=== PATIENT | female | born 1945 | race Caucasian/White ===

== ENCOUNTER 2018-02-16 15:00 | Inpatient (IN) | payer MEDICARE, OTHER ==
[2018-02-16 15:59] LABS: ABNORMAL IP MESSAGE 1; HEMATOCRIT 54.6 % (37.0-47.0); HEMOGLOBIN 18.4 g/dl (12.0-16.0); MEAN CORPUSCULAR HEMOGLOBIN 29.4 pg (29.0-33.0); MEAN CORPUSCULAR HGB CONC 33.7 g/dl (32.0-37.0); MEAN CORPUSCULAR VOLUME 87.2 fl (82.0-101.0); NUCLEATED RED BLOOD CELLS% 1.2 /100WBC (0.0-0.0); PLATELET COUNT 101 10^3/UL (140-415); RED BLOOD COUNT 6.26 10^6/ul (4.20-5.40); RED CELL DISTRIBUTION WIDTH 23.2 % (11.5-14.5)
[2018-02-16 15:59] LABS: WHITE BLOOD COUNT 8.4 10^3/ul (4.8-10.8)
[2018-02-16] MEDS: SODIUM CHLORIDE 0.9% 1L BAG IV* (16:02)
[2018-02-16 16:10] LABS: ADD UMIC NO; UR ASCORBIC ACID NEGATIVE (NEGATIVE); UR BILIRUBIN (Dip) NEGATIVE (NEGATIVE); UR BLOOD (Dip) NEGATIVE (NEGATIVE); UR CLARITY CLEAR (CLEAR); UR COLOR AMBER (YELLOW); UR GLUCOSE (Dip) NEGATIVE (NEGATIVE); UR KETONES (Dip) NEGATIVE (NEGATIVE); UR LEUKOCYTE ESTERASE (Dip) NEGATIVE Leu/ul (NEGATIVE); UR NITRITE (Dip) NEGATIVE (NEGATIVE); UR SPECIFIC GRAVITY (Dip) 1.012 (1.003-1.030); UR TOTAL PROTEIN (Dip) NEGATIVE (NEGATIVE); UR UROBILINOGEN (Dip) 2+ mg/dL (NEGATIVE)
[2018-02-16 16:16] LABS: PARTIAL THROMBOPLASTIN TIME 37.2 Sec (23.0-35.0)
[2018-02-16 16:17] LABS: ALANINE AMINOTRANSFERASE 60 IU/L (13-69); ALBUMIN 3.6 g/dl (3.3-4.9); ALKALINE PHOSPHATASE 151 IU/L (42-121); ANION GAP 20 (5-13); ASPARTATE AMINO TRANSFERASE 152 IU/L (15-46); BILIRUBIN,INDIRECT 1.6 mg/dl (0-1.1); BILIRUBIN,TOTAL 3.2 mg/dl (0.2-1.3); BLOOD UREA NITROGEN 53 mg/dl (7-20); CALCIUM 9.5 mg/dl (8.4-10.2); CARBON DIOXIDE 17 mmol/L (21-31); CHLORIDE 103 mmol/L (97-110); CREATININE 1.85 mg/dl (0.44-1.00); GLUCOSE 186 mg/dl (70-220); POTASSIUM 5.4 mmol/L (3.5-5.1); SODIUM 140 mmol/L (135-144)
[2018-02-16 16:19] LABS: ADD MAN DIFF? YES; POSITIVE DIFF @See below
[2018-02-16 16:29] LABS: INR 2.08; PROTIME 23.9 Sec (11.9-14.9); PT RATIO 1.9
[2018-02-16 17:07] LABS: ANISOCYTOSIS 1+ (0-0); BAND NEUTROPHILS #M 0.4 10^3/ul (0.0-0.6); BAND NEUTROPHILS % (M) 5 % (0-4); BASOPHIL #M 0.1 10^3/ul (0.0-0.0); BASOPHILS % (M) 2 % (0-2); BURR CELLS 3+ (0-0); ERYTHROBLAST% (NRBC) (M) 2 % (0-0); GIANT THROMBO% (M) 5 % (0-0); LYMPHOCYTES #M 0.5 10^3/ul (0.8-2.9); LYMPHOCYTES % (M) 7 % (15-51); MONOCYTE #M 0.3 10^3/ul (0.3-0.9); MONOCYTES % (M) 4 % (0-11); OVALOCYTES 1+ (0-0); PLATELET ESTIMATE DECREASED; POIKILOCYTOSIS 3+ (0-0); REACTIVE LYMPHOCYTES #M 0.1 10^3/ul (0.0-0.0); REACTIVE LYMPHOCYTES% (M) 2 % (0-0); SEG NEUT #M 6.8 10^3/ul (1.6-7.5); SEGMENTED NEUTROPHILS (M) % 80 % (39-77); SMUDGE%M 23 % (0-0)
[2018-02-16] MEDS: MEROPENEM 1 GM/50ML(PMX) 50 ML IVPB (17:12)
[2018-02-16 17:15] LABS: AADO2 Arterial 46.1 mmHg (7.0-24.0); Arterial Base Excess -11.5 mmol/L (-3.0-3); Arterial Blood Gas Oxygen Sat 99.7 mmHG (95.0-100.0); Arterial COHb 0.4 % (0.0-3.0); Arterial Fraction of Oxyhgb 98.7 % (93.0-99.0); Arterial HCO3 10.3 mmol/L (22.0-26.0); Arterial MetHb 0.6 % (0.0-1.5); Arterial Total Hemglobin 17.8 g/dl (12.0-18.0); Blood Gas IEPAP 15/5; Blood Gas PS 10; MODE MASK - BIPAP; Site Right Brachial
[2018-02-16 17:35] LABS: CREATINE KINASE 967 IU/L (23-200)
[2018-02-16] MEDS: VANCOMYCIN 1 GM (PMX) 250 ML IVPB (18:33)
[2018-02-16 20:05] LABS: URINE BLOOD (Dip) POC Negative (NEGATIVE); URINE GLUCOSE (Dip) POC Negative (NEGATIVE); URINE KETONES (Dip) POC Trace (NEGATIVE); URINE LEUKOCYTE EST (Dip) POC Negative (NEGATIVE); URINE NITRITE (Dip) POC Negative (NEGATIVE); URINE TOTAL PROTEIN POC Trace (NEGATIVE)
[2018-02-16] MEDS ORDERED: VANCOMYCIN IV PER PHARMACY XX (20:30)
[2018-02-16 20:34] LABS: FREE T3 1.84 pg/ml (2.77-5.27); FREE T4 (FREE THYROXINE) 1.86 ng/dl (0.78-2.44)
[2018-02-16 21:20] LABS: ADD MAN DIFF? NO
[2018-02-16 21:24] LABS: ABNORMAL IP MESSAGE 1; BASOPHILS % 0.3 % (0.0-2.0); EOSINOPHILS % 0.1 % (0.0-7.0); HEMATOCRIT 48.1 % (37.0-47.0); HEMOGLOBIN 16.4 g/dl (12.0-16.0); LYMPHOCYTES # 1.1 10^3/ul (0.8-2.9); LYMPHOCYTES % 10.8 % (15.0-51.0); MEAN CORPUSCULAR HEMOGLOBIN 29.5 pg (29.0-33.0); MEAN CORPUSCULAR HGB CONC 34.1 g/dl (32.0-37.0); MEAN CORPUSCULAR VOLUME 86.7 fl (82.0-101.0); MONOCYTE # 0.3 10^3/ul (0.3-0.9); MONOCYTES % 2.6 % (0.0-11.0); NEUTROPHIL # 8.4 10^3/ul (1.6-7.5); NEUTROPHILS % 85.5 % (39.0-77.0); NUCLEATED RED BLOOD CELLS # 0.1 10^3/ul (0.0-0.0); NUCLEATED RED BLOOD CELLS% 1.2 /100WBC (0.0-0.0); PLATELET COUNT 86 10^3/UL (140-415); RED BLOOD COUNT 5.55 10^6/ul (4.20-5.40); RED CELL DISTRIBUTION WIDTH 22.3 % (11.5-14.5)
[2018-02-16 21:24] LABS: WHITE BLOOD COUNT 9.9 10^3/ul (4.8-10.8)
[2018-02-16] MEDS: SOD CHLORIDE 0.9% 1,000 ML IV (21:26)
[2018-02-16] MEDS: ASPIRIN 300 MG SUPP PR (21:26)
[2018-02-16 21:30] LABS: POSITIVE DIFF @See below
[2018-02-16] MEDS ORDERED: SOD CHLORIDE 0.9% 1,000 ML IV (21:31)
[2018-02-16 21:47] LABS: CREATINE KINASE 1095 IU/L (23-200)
[2018-02-16 21:48] LABS: LACTIC ACID 9.1 mmol/L (0.5-2.0)
[2018-02-16 22:00] LABS: CK INDEX 4.8
[2018-02-16] MEDS ORDERED: BISACODYL (EC) 5 MG TAB PO (22:00)
[2018-02-16] MEDS ORDERED: ACETAMINOPHEN 650 MG SUPP PR (22:00)
[2018-02-16] MEDS ORDERED: GLUCAGON 1 MG INJ IM (22:30)
[2018-02-16] MEDS ORDERED: DEXTROSE 50% 50 ML SYRINGE IV (22:30)
[2018-02-16] MEDS ORDERED: GLUCOSE GEL 15 GRAM TUBE BUCCAL (22:30)
[2018-02-16] MEDS ORDERED: GLUCOSE GEL 15 GRAM TUBE PO ×2 (22:30)
[2018-02-16 22:58] LABS: HAAIG REFLEX REFLEX FILED
[2018-02-16] MEDS ORDERED: DIGOXIN 500 MCG INJ IV (23:00)
[2018-02-16 23:02] LABS: ALANINE AMINOTRANSFERASE 59 IU/L (13-69); ALBUMIN 2.3 g/dl (3.3-4.9); ALBUMIN/GLOBULIN RATIO 1.27; ALKALINE PHOSPHATASE 108 IU/L (42-121); ANION GAP 18 (5-13); ASPARTATE AMINO TRANSFERASE 114 IU/L (15-46); BILIRUBIN,INDIRECT 1.1 mg/dl (0-1.1); BILIRUBIN,TOTAL 2.5 mg/dl (0.2-1.3); BLOOD UREA NITROGEN 48 mg/dl (7-20); CALCIUM 8.3 mg/dl (8.4-10.2); CARBON DIOXIDE 11 mmol/L (21-31); CHLORIDE 112 mmol/L (97-110); CREATININE 1.72 mg/dl (0.44-1.00); GLUCOSE 78 mg/dl (70-220); POTASSIUM 5.1 mmol/L (3.5-5.1); SODIUM 141 mmol/L (135-144); TOTAL PROTEIN 4.1 g/dl (6.1-8.1)
[2018-02-16] MEDS: DEXTROSE 50% 50 ML SYRINGE IV ×2 (23:46→23:57)
[2018-02-16 23:50] LABS: HEPATITIS B SURFACE ANTIGEN NEGATIVE (NEGATIVE)
[2018-02-17 00:08] LABS: HEPATITIS B CORE ANTIBODY NEGATIVE (NEGATIVE); HEPATITIS C VIRAL ANTIBODY NEGATIVE (NEGATIVE)
[2018-02-17 00:09] LABS: HEPATITIS B SURFACE ANTIBODY NEGATIVE (NEGATIVE)
[2018-02-17] MEDS: METOPROLOL 5 MG INJ IV ×2 (00:21→21:21)
[2018-02-17] MEDS: ALBUMIN HUMAN 25% 100 ML IV ×2 (00:38→02:56)
[2018-02-17] MEDS: SODIUM BICARBONATE (IV ADD) 150 MEQ in DEXTROSE 5% 1,000 ML IV (00:45)
[2018-02-17 00:52] LABS: AADO2 Arterial 208.8 mmHg (7.0-24.0); Arterial Base Excess -11.5 mmol/L (-3.0-3); Arterial COHb 0.5 % (0.0-3.0); Arterial Fraction of Oxyhgb 81.3 % (93.0-99.0); Arterial HCO3 11.8 mmol/L (22.0-26.0); Arterial MetHb 0.4 % (0.0-1.5); Arterial Total Hemglobin 16.5 g/dl (12.0-18.0); Arterial pCO2 22.5 mmhg (35-45); Blood Gas IEPAP 15/5; MODE MASK - BIPAP; Site LB
[2018-02-17 00:59] LABS: LACTIC ACID 9.7 mmol/L (0.5-2.0)
[2018-02-17] MEDS: IPRATROPIUM (NEB) 0.5 MG/2.5 ML AMP NEB ×6 (01:00→20:21)
[2018-02-17] MEDS: ALBUTEROL 0.083% (NEB) 2.5 MG/3 ML AMP NEB ×2 (01:00→05:20)
[2018-02-17] MEDS: ACCU-CHEK XX (02:04)
[2018-02-17] MEDS: INSULIN ASPART [NOVOLOG] 3 ML PEN SC ×7 (02:11→21:52)
[2018-02-17 02:56] LABS: CREATINE KINASE 996 IU/L (23-200)
[2018-02-17] MEDS: LEVOTHYROXINE 100 MCG VIAL IV (02:56)
[2018-02-17] MEDS: NA BICARBONATE 8.4% 50 ML SYG IV ×2 (02:57)
[2018-02-17 02:58] LABS: ALANINE AMINOTRANSFERASE 58 IU/L (13-69); ALBUMIN 3.1 g/dl (3.3-4.9); ALBUMIN/GLOBULIN RATIO 1.47; ALKALINE PHOSPHATASE 117 IU/L (42-121); ANION GAP 18 (5-13); ASPARTATE AMINO TRANSFERASE 131 IU/L (15-46); BILIRUBIN,INDIRECT 1.3 mg/dl (0-1.1); BILIRUBIN,TOTAL 2.8 mg/dl (0.2-1.3); BLOOD UREA NITROGEN 49 mg/dl (7-20); CALCIUM 8.6 mg/dl (8.4-10.2); CARBON DIOXIDE 12 mmol/L (21-31); CHLORIDE 113 mmol/L (97-110); CREATININE 1.83 mg/dl (0.44-1.00); GLUCOSE 153 mg/dl (70-220); MAGNESIUM 2.1 mg/dl (1.7-2.5); POTASSIUM 4.9 mmol/L (3.5-5.1); SODIUM 143 mmol/L (135-144); TOTAL PROTEIN 5.2 g/dl (6.1-8.1)
[2018-02-17 03:07] LABS: CK INDEX 4.9
[2018-02-17] MEDS: MEROPENEM 500MG/50 ML (PMX) 50 ML IVPB ×3 (04:44→20:09)
[2018-02-17] MEDS: PANTOPRAZOLE 40 MG INJ IV (05:07)
[2018-02-17 05:13] LABS: ADD MAN DIFF? NO
[2018-02-17 05:20] LABS: ABNORMAL IP MESSAGE 1; BASOPHILS % 0.2 % (0.0-2.0); EOSINOPHILS % 0.1 % (0.0-7.0); HEMOGLOBIN 13.3 g/dl (12.0-16.0); LYMPHOCYTES # 2.1 10^3/ul (0.8-2.9); LYMPHOCYTES % 18.7 % (15.0-51.0); MEAN CORPUSCULAR HEMOGLOBIN 29.7 pg (29.0-33.0); MEAN CORPUSCULAR VOLUME 84.8 fl (82.0-101.0); MONOCYTE # 0.3 10^3/ul (0.3-0.9); MONOCYTES % 2.9 % (0.0-11.0); NEUTROPHIL # 8.6 10^3/ul (1.6-7.5); NEUTROPHILS % 77.6 % (39.0-77.0); NUCLEATED RED BLOOD CELLS # 0.1 10^3/ul (0.0-0.0); NUCLEATED RED BLOOD CELLS% 0.7 /100WBC (0.0-0.0); RED BLOOD COUNT 4.48 10^6/ul (4.20-5.40); RED CELL DISTRIBUTION WIDTH 21.2 % (11.5-14.5)
[2018-02-17 05:32] LABS: HEMOGLOBIN A1C 6.2 % (0-5.9)
[2018-02-17 05:54] LABS: PLATELET COUNT 46 10^3/UL (140-415); POSITIVE DIFF @See below
[2018-02-17 06:06] LABS: INR 3.29; PROTIME 34.5 Sec (11.9-14.9); PT RATIO 2.7
[2018-02-17] MEDS: PHENYLephrine 40 MG in DEXTROSE 5% 496 ML IV (06:19)
[2018-02-17 07:23] LABS: B-TYPE NATRIURETIC PEPTIDE 7870 PG/ML (0-125)
[2018-02-17 07:26] LABS: AADO2 Arterial 52.9 mmHg (7.0-24.0); Allen Test ACCEPTAB; Arterial Base Excess -4.1 mmol/L (-3.0-3); Arterial Blood Gas Oxygen Sat 98.9 mmHG (95.0-100.0); Arterial COHb 0.8 % (0.0-3.0); Arterial Fraction of Oxyhgb 97.7 % (93.0-99.0); Arterial HCO3 17.3 mmol/L (22.0-26.0); Arterial MetHb 0.4 % (0.0-1.5); Arterial Total Hemglobin 14.1 g/dl (12.0-18.0); Arterial pCO2 23.4 mmhg (35-45); MODE NASAL CANNULA; Site Left Radial
[2018-02-17 08:29] LABS: OSMOLALITY 325 mOsm/kg (280-295)
[2018-02-17] MEDS ORDERED: SOD CHLORIDE 0.9% 1,000 ML IV (09:30)
[2018-02-17 09:37] LABS: CREATINE KINASE 814 IU/L (23-200)
[2018-02-17 09:50] LABS: CK INDEX 5.3
[2018-02-17] MEDS: FUROSEMIDE 40 MG INJ IV (10:00)
[2018-02-17 10:12] LABS: PLATELET COUNT 74 10^3/UL (140-415)
[2018-02-17 10:29] LABS: LACTIC ACID 6.7 mmol/L (0.5-2.0)
[2018-02-17 10:32] LABS: PARTIAL THROMBOPLASTIN TIME 32.9 Sec (23.0-35.0)
[2018-02-17 10:37] LABS: INR 3.13; PROTIME 33.1 Sec (11.9-14.9); PT RATIO 2.6
[2018-02-17 10:55] LABS: FIBRIN SPLIT PRODUCT <10 ug/ml (<10)
[2018-02-17 10:56] LABS: D-DIMER > 10000.00 ng/ml (<460)
[2018-02-17] MEDS: DEXTROSE 5% 1,000 ML IV (11:00)
[2018-02-17 11:06] LABS: THROMBIN TIME 18.7 SEC (13.8-19.1)
[2018-02-17 12:12] LABS: AADO2 Arterial 38.6 mmHg (7.0-24.0); Allen Test ACCEPTAB; Arterial Base Excess -2.1 mmol/L (-3.0-3); Arterial Blood Gas Oxygen Sat 98.8 mmHG (95.0-100.0); Arterial COHb 0.4 % (0.0-3.0); Arterial HCO3 19.7 mmol/L (22.0-26.0); Arterial MetHb 0.4 % (0.0-1.5); Arterial Total Hemglobin 14.5 g/dl (12.0-18.0); Arterial pCO2 26.6 mmhg (35-45); MODE NASAL CANNULA; Site Left Radial
[2018-02-17] MEDS: LIDOCAINE 1% (MPF) 5 ML VIAL SC (13:00)
[2018-02-17 14:11] LABS: LACTIC ACID 5.6 mmol/L (0.5-2.0)
[2018-02-17] MEDS ORDERED: ONDANSETRON 4 MG INJ IV (14:30)
[2018-02-17 16:52] LABS: RETICULOCYTE RBC 4.49
[2018-02-17 16:52] LABS: RETICULOCYTE COUNT # 0.083 X10^6 (0.020-0.110); RETICULOCYTE COUNT % 1.9 % (0.5-1.5)
[2018-02-17 17:09] LABS: LACTATE DEHYDROGENASE 1155 IU/L (313-618)
[2018-02-17 18:05] LABS: SALICYLATE 1.1 mg/dl (5.0-30.0)
[2018-02-17] MEDS ORDERED: NORepinephrine 8MG/250 ML (PMX 250 ML IV (20:00)
[2018-02-17] MEDS: LEVALBUTEROL (NEB) 0.63 MG/3 ML AMP HHN (20:20)
[2018-02-18] MEDS: ACCU-CHEK XX (01:50)
[2018-02-18] MEDS: INSULIN ASPART [NOVOLOG] 3 ML PEN SC ×6 (01:54→22:30)
[2018-02-18] MEDS: IPRATROPIUM (NEB) 0.5 MG/2.5 ML AMP NEB ×6 (02:04→20:29)
[2018-02-18] MEDS: LEVALBUTEROL (NEB) 0.63 MG/3 ML AMP HHN ×6 (02:04→20:29)
[2018-02-18] MEDS: PANTOPRAZOLE 40 MG INJ IV (05:28)
[2018-02-18 05:48] LABS: ADD MAN DIFF? NO
[2018-02-18 06:01] LABS: ABNORMAL IP MESSAGE 1; BASOPHILS % 0.1 % (0.0-2.0); EOSINOPHILS % 0.2 % (0.0-7.0); HEMATOCRIT 38.2 % (37.0-47.0); HEMOGLOBIN 13.1 g/dl (12.0-16.0); LYMPHOCYTES # 1.7 10^3/ul (0.8-2.9); LYMPHOCYTES % 18.5 % (15.0-51.0); MEAN CORPUSCULAR HEMOGLOBIN 29.6 pg (29.0-33.0); MEAN CORPUSCULAR HGB CONC 34.3 g/dl (32.0-37.0); MEAN CORPUSCULAR VOLUME 86.2 fl (82.0-101.0); MONOCYTE # 0.6 10^3/ul (0.3-0.9); MONOCYTES % 6.2 % (0.0-11.0); NEUTROPHIL # 6.8 10^3/ul (1.6-7.5); NEUTROPHILS % 74.6 % (39.0-77.0); NUCLEATED RED BLOOD CELLS # 0.1 10^3/ul (0.0-0.0); NUCLEATED RED BLOOD CELLS% 1.4 /100WBC (0.0-0.0); PLATELET COUNT 69 10^3/UL (140-415); RED BLOOD COUNT 4.43 10^6/ul (4.20-5.40); RED CELL DISTRIBUTION WIDTH 20.9 % (11.5-14.5)
[2018-02-18 06:01] LABS: WHITE BLOOD COUNT 9.1 10^3/ul (4.8-10.8)
[2018-02-18 06:10] LABS: POSITIVE DIFF @See below
[2018-02-18 06:18] LABS: INR 2.63; PROTIME 28.8 Sec (11.9-14.9); PT RATIO 2.3
[2018-02-18 06:22] LABS: INR 2.63; PROTIME 28.8 Sec (11.9-14.9); PT RATIO 2.3
[2018-02-18 06:24] LABS: PARTIAL THROMBOPLASTIN TIME 41.7 Sec (23.0-35.0); THROMBIN TIME 16.6 SEC (13.8-19.1)
[2018-02-18 06:37] LABS: ALANINE AMINOTRANSFERASE 71 IU/L (13-69); ALBUMIN 2.8 g/dl (3.3-4.9); ALBUMIN/GLOBULIN RATIO 1.64; ALKALINE PHOSPHATASE 107 IU/L (42-121); ANION GAP 12 (5-13); ASPARTATE AMINO TRANSFERASE 137 IU/L (15-46); BILIRUBIN,INDIRECT 1.3 mg/dl (0-1.1); BILIRUBIN,TOTAL 2.1 mg/dl (0.2-1.3); BLOOD UREA NITROGEN 59 mg/dl (7-20); CARBON DIOXIDE 25 mmol/L (21-31); CHLORIDE 107 mmol/L (97-110); CREATININE 1.98 mg/dl (0.44-1.00); GLUCOSE 129 mg/dl (70-220); MAGNESIUM 1.9 mg/dl (1.7-2.5); POTASSIUM 3.9 mmol/L (3.5-5.1); SODIUM 144 mmol/L (135-144); TOTAL PROTEIN 4.5 g/dl (6.1-8.1)
[2018-02-18 06:44] LABS: D-DIMER > 10000.00 ng/ml (<460)
[2018-02-18 06:47] LABS: PHOSPHORUS 5.6 mg/dl (2.5-4.9)
[2018-02-18 06:56] LABS: PLATELET COUNT 69 10^3/UL (140-415)
[2018-02-18 07:11] LABS: FIBRIN SPLIT PRODUCT >10 and <40 ug/ml (<10)
[2018-02-18 08:09] LABS: VANCOMYCIN,RANDOM 12.3 ug/ml
[2018-02-18] MEDS: MEROPENEM 500MG/50 ML (PMX) 50 ML IVPB ×2 (09:07→23:21)
[2018-02-18] MEDS: METOPROLOL 5 MG INJ IV (09:08)
[2018-02-18] MEDS: DEXTROSE 5% 1,000 ML IV (09:08)
[2018-02-18] MEDS: BUMETANIDE 12 MG in DEXTROSE 5% 72 ML IV (10:44)
[2018-02-18] MEDS ORDERED: IOHEXOL 14.3 MG(I)/ML (ADULT) BTL PO ×2 (15:30→17:00)
[2018-02-18] MEDS ORDERED: LIDOCAINE 2% JEL.PF.APP 5 ML UROJET SYRINGE MM (16:00)
[2018-02-18 16:27] LABS: TYPE AND SCREEN 1
[2018-02-18] MEDS: DIGOXIN 500 MCG INJ IV (16:28)
[2018-02-18] MEDS: VANCOMYCIN 1.25 GM in SOD CHLORIDE 0.9% 250 ML IVPB (16:28)
[2018-02-18] MEDS: PHYTONADIONE 10 MG in DEXTROSE 5% 50 ML IVPB (18:12)
[2018-02-19] MEDS: INSULIN ASPART [NOVOLOG] 3 ML PEN SC ×6 (01:00→22:38)
[2018-02-19] MEDS: ACCU-CHEK XX (01:02)
[2018-02-19] MEDS: LEVALBUTEROL (NEB) 0.63 MG/3 ML AMP HHN ×3 (01:26→21:12)
[2018-02-19] MEDS: IPRATROPIUM (NEB) 0.5 MG/2.5 ML AMP NEB ×6 (01:26→21:12)
[2018-02-19] MEDS: PANTOPRAZOLE 40 MG INJ IV (05:25)
[2018-02-19] MEDS: DEXTROSE 5% 1,000 ML IV ×2 (05:29→23:00)
[2018-02-19 05:42] LABS: ADD MAN DIFF? NO
[2018-02-19 05:46] LABS: WHITE BLOOD COUNT 6.6 10^3/ul (4.8-10.8)
[2018-02-19 05:46] LABS: ABNORMAL IP MESSAGE 1; BASOPHILS % 0.2 % (0.0-2.0); EOSINOPHILS # 0.1 10^3/ul (0.0-0.5); EOSINOPHILS % 0.9 % (0.0-7.0); HEMOGLOBIN 12.7 g/dl (12.0-16.0); LYMPHOCYTES # 1.2 10^3/ul (0.8-2.9); LYMPHOCYTES % 18.4 % (15.0-51.0); MEAN CORPUSCULAR HEMOGLOBIN 29.5 pg (29.0-33.0); MEAN CORPUSCULAR HGB CONC 34.3 g/dl (32.0-37.0); MEAN PLATELET VOLUME 11.1 fl (7.4-10.4); MONOCYTE # 0.5 10^3/ul (0.3-0.9); MONOCYTES % 7.9 % (0.0-11.0); NEUTROPHIL # 4.8 10^3/ul (1.6-7.5); NEUTROPHILS % 72.1 % (39.0-77.0); NUCLEATED RED BLOOD CELLS # 0.1 10^3/ul (0.0-0.0); NUCLEATED RED BLOOD CELLS% 2.1 /100WBC (0.0-0.0); PLATELET COUNT 68 10^3/UL (140-415); RED CELL DISTRIBUTION WIDTH 20.7 % (11.5-14.5)
[2018-02-19 05:55] LABS: POSITIVE DIFF @See below
[2018-02-19 06:00] LABS: SODIUM,URINE RANDOM 118 mmol/L (30-90)
[2018-02-19 06:01] LABS: CREATININE,URINE RANDOM < 12.40 mg/dl (20-320)
[2018-02-19 06:03] LABS: INR 1.61; PROTIME 19.5 Sec (11.9-14.9); PT RATIO 1.5
[2018-02-19 06:08] LABS: CREATINE KINASE 379 IU/L (23-200)
[2018-02-19 06:10] LABS: ALANINE AMINOTRANSFERASE 81 IU/L (13-69); ALKALINE PHOSPHATASE 106 IU/L (42-121); ANION GAP 9 (5-13); ASPARTATE AMINO TRANSFERASE 132 IU/L (15-46); BILIRUBIN,INDIRECT 1.9 mg/dl (0-1.1); BILIRUBIN,TOTAL 2.7 mg/dl (0.2-1.3); BLOOD UREA NITROGEN 60 mg/dl (7-20); CALCIUM 8.1 mg/dl (8.4-10.2); CARBON DIOXIDE 30 mmol/L (21-31); CHLORIDE 103 mmol/L (97-110); CREATININE 1.89 mg/dl (0.44-1.00); GLUCOSE 128 mg/dl (70-220); MAGNESIUM 1.7 mg/dl (1.7-2.5); POTASSIUM 3.3 mmol/L (3.5-5.1); SODIUM 142 mmol/L (135-144); TOTAL PROTEIN 5.3 g/dl (6.1-8.1)
[2018-02-19 06:19] LABS: CK INDEX 1.3; CK-MB 4.84 ng/ml (0.0-2.4); CREATININE,URINE RANDOM < 12.40 mg/dl (20-320)
[2018-02-19 06:27] LABS: ADD UMIC YES; UR ASCORBIC ACID NEGATIVE (NEGATIVE); UR BILIRUBIN (Dip) NEGATIVE (NEGATIVE); UR BLOOD (Dip) 2+ mg/dL (NEGATIVE); UR CLARITY CLEAR (CLEAR); UR COLOR YELLOW (YELLOW); UR GLUCOSE (Dip) NEGATIVE (NEGATIVE); UR KETONES (Dip) NEGATIVE (NEGATIVE); UR LEUKOCYTE ESTERASE (Dip) NEGATIVE Leu/ul (NEGATIVE); UR MUCUS FEW /HPF (NONE SEEN); UR NITRITE (Dip) NEGATIVE (NEGATIVE); UR RBC 2 /HPF (0-5); UR SPECIFIC GRAVITY (Dip) 1.005 (1.003-1.030); UR TOTAL PROTEIN (Dip) NEGATIVE (NEGATIVE); UR UROBILINOGEN (Dip) NEGATIVE (NEGATIVE); UR WBC 1 /HPF (0-5)
[2018-02-19 07:01] LABS: OSMOLALITY,URINE 289 mOsm/kg (250-1200)
[2018-02-19] MEDS: SPIRONOLACTONE 25 MG TAB PO (09:14)
[2018-02-19] MEDS: BUMETANIDE 6 MG in DEXTROSE 5% 36 ML IV (09:14)
[2018-02-19] MEDS: MEROPENEM 500MG/50 ML (PMX) 50 ML IVPB ×2 (09:14→22:30)
[2018-02-19] MEDS: POTASSIUM CHLORIDE 100 ML IVPB ×2 (09:14→12:40)
[2018-02-19] MEDS: BALSAM PERU/CASTOR OIL 60 GM TUBE TOP (11:00)
[2018-02-19 11:07] LABS: IMMEDIATE SPIN CROSSMATCH 1
[2018-02-19 13:06] LABS: TYPE AND SCREEN 1 1
[2018-02-19] MEDS: METOPROLOL 5 MG INJ IV ×2 (13:09→17:06)
[2018-02-19 13:51] LABS: HAPTOGLOBIN <8 mg/dL (43-212)
[2018-02-19 14:33] LABS: ANION GAP 10 (5-13); BLOOD UREA NITROGEN 57 mg/dl (7-20); CALCIUM 8.2 mg/dl (8.4-10.2); CARBON DIOXIDE 30 mmol/L (21-31); CHLORIDE 101 mmol/L (97-110); CREATININE 1.76 mg/dl (0.44-1.00); GLUCOSE 163 mg/dl (70-220); POTASSIUM 4.2 mmol/L (3.5-5.1); SODIUM 141 mmol/L (135-144)
[2018-02-19] MEDS: LIDOCAINE 1% (MPF) 5 ML VIAL ×2 (15:45)
[2018-02-19] MEDS: MAGNESIUM SULFATE 2 GM/50 ML 50 ML IVPB (16:59)
[2018-02-20] MEDS: INSULIN ASPART [NOVOLOG] 3 ML PEN SC ×6 (01:00→20:21)
[2018-02-20] MEDS: IPRATROPIUM (NEB) 0.5 MG/2.5 ML AMP NEB ×6 (01:32→20:48)
[2018-02-20] MEDS: LEVALBUTEROL (NEB) 0.63 MG/3 ML AMP HHN ×5 (01:32→17:38)
[2018-02-20] MEDS: ACCU-CHEK XX (02:00)
[2018-02-20] MEDS: METOPROLOL 5 MG INJ IV ×4 (02:46→17:54)
[2018-02-20] MEDS: PANTOPRAZOLE 40 MG INJ IV (06:01)
[2018-02-20] MEDS: SPIRONOLACTONE 25 MG TAB PO (06:01)
[2018-02-20 06:18] LABS: ADD MAN DIFF? NO
[2018-02-20 06:25] LABS: ABNORMAL IP MESSAGE 1; BASOPHILS % 0.2 % (0.0-2.0); EOSINOPHILS # 0.1 10^3/ul (0.0-0.5); EOSINOPHILS % 2.2 % (0.0-7.0); HEMOGLOBIN 13.1 g/dl (12.0-16.0); LYMPHOCYTES # 1.2 10^3/ul (0.8-2.9); LYMPHOCYTES % 22.2 % (15.0-51.0); MEAN CORPUSCULAR HEMOGLOBIN 29.1 pg (29.0-33.0); MEAN CORPUSCULAR HGB CONC 33.6 g/dl (32.0-37.0); MEAN CORPUSCULAR VOLUME 86.7 fl (82.0-101.0); MONOCYTE # 0.6 10^3/ul (0.3-0.9); MONOCYTES % 10.6 % (0.0-11.0); NEUTROPHIL # 3.4 10^3/ul (1.6-7.5); NEUTROPHILS % 63.9 % (39.0-77.0); NUCLEATED RED BLOOD CELLS # 0.2 10^3/ul (0.0-0.0); NUCLEATED RED BLOOD CELLS% 2.8 /100WBC (0.0-0.0); PLATELET COUNT 51 10^3/UL (140-415); RED CELL DISTRIBUTION WIDTH 20.5 % (11.5-14.5)
[2018-02-20 06:25] LABS: WHITE BLOOD COUNT 5.4 10^3/ul (4.8-10.8)
[2018-02-20 06:36] LABS: POSITIVE DIFF @See below
[2018-02-20 06:43] LABS: INR 1.38; PROTIME 17.2 Sec (11.9-14.9); PT RATIO 1.3
[2018-02-20 06:49] LABS: ALANINE AMINOTRANSFERASE 121 IU/L (13-69); ALBUMIN 3.4 g/dl (3.3-4.9); ALBUMIN/GLOBULIN RATIO 1.54; ALKALINE PHOSPHATASE 134 IU/L (42-121); ANION GAP 12 (5-13); ASPARTATE AMINO TRANSFERASE 240 IU/L (15-46); BILIRUBIN,INDIRECT 2.4 mg/dl (0-1.1); BILIRUBIN,TOTAL 2.9 mg/dl (0.2-1.3); BLOOD UREA NITROGEN 50 mg/dl (7-20); CALCIUM 8.1 mg/dl (8.4-10.2); CARBON DIOXIDE 32 mmol/L (21-31); CHLORIDE 92 mmol/L (97-110); CREATININE 1.49 mg/dl (0.44-1.00); GLUCOSE 331 mg/dl (70-220); POTASSIUM 3.4 mmol/L (3.5-5.1); SODIUM 136 mmol/L (135-144); TOTAL PROTEIN 5.6 g/dl (6.1-8.1)
[2018-02-20 06:51] LABS: VANCOMYCIN,RANDOM 17.4 ug/ml
[2018-02-20] MEDS: DEXTROSE 5% 1,000 ML IV (06:59)
[2018-02-20 07:27] LABS: FIBRIN SPLIT PRODUCT >40 and <80 ug/ml (<10)
[2018-02-20 08:08] LABS: PLATELET COUNT 51 10^3/UL (140-415)
[2018-02-20 08:09] LABS: INR 1.38; PARTIAL THROMBOPLASTIN TIME 32.6 Sec (23.0-35.0); PROTIME 17.2 Sec (11.9-14.9); PT RATIO 1.3
[2018-02-20] MEDS: BALSAM PERU/CASTOR OIL 60 GM TUBE TOP (09:00)
[2018-02-20 09:11] LABS: D-DIMER > 10000.00 ng/ml (<460)
[2018-02-20 09:21] LABS: THROMBIN TIME 17.2 SEC (13.8-19.1)
[2018-02-20] MEDS: MEROPENEM 500MG/50 ML (PMX) 50 ML IVPB ×2 (10:05→20:14)
[2018-02-20] MEDS: POTASSIUM CHLORIDE 50 ML IVPB ×2 (11:02→13:26)
[2018-02-20 19:47] LABS: C-REACTIVE PROTEIN 1.9 mg/dl (0.0-0.9)
[2018-02-20] MEDS: VANCOMYCIN 1 GM 250 ML IVPB (21:08)
[2018-02-21] MEDS: INSULIN ASPART [NOVOLOG] 3 ML PEN SC ×5 (00:23→17:25)
[2018-02-21] MEDS: METOPROLOL 5 MG INJ IV ×2 (00:25→05:21)
[2018-02-21] MEDS: IPRATROPIUM (NEB) 0.5 MG/2.5 ML AMP NEB ×6 (00:41→20:11)
[2018-02-21] MEDS: ACCU-CHEK XX (01:28)
[2018-02-21] MEDS: SPIRONOLACTONE 25 MG TAB PO (05:20)
[2018-02-21] MEDS: PANTOPRAZOLE 40 MG INJ IV (05:20)
[2018-02-21] MEDS: DEXTROSE 5% 1,000 ML IV (05:21)
[2018-02-21 06:00] LABS: ADD MAN DIFF? NO
[2018-02-21 06:02] LABS: WHITE BLOOD COUNT 5.8 10^3/ul (4.8-10.8)
[2018-02-21 06:02] LABS: ABNORMAL IP MESSAGE 1; BASOPHILS % 0.5 % (0.0-2.0); EOSINOPHILS # 0.1 10^3/ul (0.0-0.5); EOSINOPHILS % 2.4 % (0.0-7.0); HEMATOCRIT 43.2 % (37.0-47.0); HEMOGLOBIN 14.3 g/dl (12.0-16.0); LYMPHOCYTES # 1.8 10^3/ul (0.8-2.9); LYMPHOCYTES % 30.6 % (15.0-51.0); MEAN CORPUSCULAR HEMOGLOBIN 29.1 pg (29.0-33.0); MEAN CORPUSCULAR HGB CONC 33.1 g/dl (32.0-37.0); MEAN CORPUSCULAR VOLUME 87.8 fl (82.0-101.0); MONOCYTE # 0.7 10^3/ul (0.3-0.9); MONOCYTES % 12.2 % (0.0-11.0); NEUTROPHIL # 3.1 10^3/ul (1.6-7.5); NEUTROPHILS % 52.9 % (39.0-77.0); NUCLEATED RED BLOOD CELLS # 0.3 10^3/ul (0.0-0.0); NUCLEATED RED BLOOD CELLS% 4.5 /100WBC (0.0-0.0); RED BLOOD COUNT 4.92 10^6/ul (4.20-5.40); RED CELL DISTRIBUTION WIDTH 20.8 % (11.5-14.5)
[2018-02-21 06:28] LABS: PLATELET COUNT 48 10^3/UL (140-415); POSITIVE DIFF @See below
[2018-02-21 06:32] LABS: INR 1.57; PROTIME 19.1 Sec (11.9-14.9); PT RATIO 1.5
[2018-02-21 06:33] LABS: PARTIAL THROMBOPLASTIN TIME 33.8 Sec (23.0-35.0)
[2018-02-21 06:38] LABS: PLATELET COUNT 48 10^3/UL (140-415)
[2018-02-21 06:49] LABS: LACTIC ACID 2.3 mmol/L (0.5-2.0)
[2018-02-21 06:54] LABS: ALANINE AMINOTRANSFERASE 124 IU/L (13-69); ALBUMIN 3.2 g/dl (3.3-4.9); ALBUMIN/GLOBULIN RATIO 1.39; ALKALINE PHOSPHATASE 162 IU/L (42-121); ANION GAP 7 (5-13); ASPARTATE AMINO TRANSFERASE 192 IU/L (15-46); BILIRUBIN,INDIRECT 2.6 mg/dl (0-1.1); BILIRUBIN,TOTAL 3.3 mg/dl (0.2-1.3); BLOOD UREA NITROGEN 50 mg/dl (7-20); CALCIUM 8.6 mg/dl (8.4-10.2); CARBON DIOXIDE 35 mmol/L (21-31); CHLORIDE 98 mmol/L (97-110); CREATININE 1.44 mg/dl (0.44-1.00); GLUCOSE 83 mg/dl (70-220); MAGNESIUM 1.8 mg/dl (1.7-2.5); POTASSIUM 4.2 mmol/L (3.5-5.1); SODIUM 140 mmol/L (135-144); TOTAL PROTEIN 5.5 g/dl (6.1-8.1)
[2018-02-21 07:02] LABS: FREE THYROXINE INDEX (Calc) 2.88 ug/ml (0.65-3.89)
[2018-02-21 07:24] LABS: HIV 1&2 ANTIBODY NEGATIVE (NEGATIVE)
[2018-02-21 07:25] LABS: FIBRIN SPLIT PRODUCT >40 and <80 ug/ml (<10)
[2018-02-21 07:26] LABS: D-DIMER > 10000.00 ng/ml (<460)
[2018-02-21] MEDS: MEROPENEM 500MG/50 ML (PMX) 50 ML IVPB ×2 (08:51→20:45)
[2018-02-21] MEDS: BALSAM PERU/CASTOR OIL 60 GM TUBE TOP (08:52)
[2018-02-21] MEDS: MAGNESIUM SULFATE 2 GM/50 ML 50 ML IVPB (12:20)
[2018-02-21 14:32] LABS: HAAIG REFLEX REFLEX FILED
[2018-02-21 14:48] LABS: AMMONIA 26 umol/l (9-30)
[2018-02-21 15:38] LABS: HEPATITIS B SURFACE ANTIGEN NEGATIVE (NEGATIVE)
[2018-02-21 15:56] LABS: HEPATITIS B CORE ANTIBODY NEGATIVE (NEGATIVE); HEPATITIS C VIRAL ANTIBODY NEGATIVE (NEGATIVE)
[2018-02-22] MEDS: IPRATROPIUM (NEB) 0.5 MG/2.5 ML AMP NEB ×6 (01:17→21:56)
[2018-02-22] MEDS: ACCU-CHEK XX (02:29)
[2018-02-22] MEDS: DEXTROSE 5% 1,000 ML IV (03:45)
[2018-02-22] MEDS: PANTOPRAZOLE 40 MG INJ IV (05:23)
[2018-02-22] MEDS: SPIRONOLACTONE 25 MG TAB PO (05:23)
[2018-02-22 05:44] LABS: ADD MAN DIFF? NO
[2018-02-22 05:52] LABS: PLATELET COUNT 50 10^3/UL (140-415)
[2018-02-22 05:56] LABS: ABNORMAL IP MESSAGE 1; BASOPHILS % 0.4 % (0.0-2.0); EOSINOPHILS # 0.1 10^3/ul (0.0-0.5); EOSINOPHILS % 1.4 % (0.0-7.0); HEMATOCRIT 40.9 % (37.0-47.0); LYMPHOCYTES # 1.1 10^3/ul (0.8-2.9); LYMPHOCYTES % 11.5 % (15.0-51.0); MEAN CORPUSCULAR HEMOGLOBIN 29.6 pg (29.0-33.0); MEAN CORPUSCULAR HGB CONC 34.2 g/dl (32.0-37.0); MEAN CORPUSCULAR VOLUME 86.5 fl (82.0-101.0); MONOCYTE # 0.7 10^3/ul (0.3-0.9); MONOCYTES % 6.7 % (0.0-11.0); NEUTROPHIL # 7.7 10^3/ul (1.6-7.5); NEUTROPHILS % 79.3 % (39.0-77.0); NUCLEATED RED BLOOD CELLS # 0.2 10^3/ul (0.0-0.0); NUCLEATED RED BLOOD CELLS% 1.5 /100WBC (0.0-0.0); PLATELET COUNT 45 10^3/UL (140-415); RED BLOOD COUNT 4.73 10^6/ul (4.20-5.40); RED CELL DISTRIBUTION WIDTH 20.2 % (11.5-14.5)
[2018-02-22 05:56] LABS: WHITE BLOOD COUNT 9.7 10^3/ul (4.8-10.8)
[2018-02-22 06:00] LABS: POSITIVE DIFF @See below
[2018-02-22 06:17] LABS: INR 1.59; PROTIME 19.3 Sec (11.9-14.9); PT RATIO 1.5
[2018-02-22 06:18] LABS: PARTIAL THROMBOPLASTIN TIME 33.9 Sec (23.0-35.0)
[2018-02-22 06:30] LABS: ALANINE AMINOTRANSFERASE 100 IU/L (13-69); ALBUMIN 2.7 g/dl (3.3-4.9); ALBUMIN/GLOBULIN RATIO 1.12; ALKALINE PHOSPHATASE 145 IU/L (42-121); ANION GAP 7 (5-13); ASPARTATE AMINO TRANSFERASE 127 IU/L (15-46); BILIRUBIN,INDIRECT 2.6 mg/dl (0-1.1); BILIRUBIN,TOTAL 3.8 mg/dl (0.2-1.3); BLOOD UREA NITROGEN 48 mg/dl (7-20); CARBON DIOXIDE 30 mmol/L (21-31); CHLORIDE 97 mmol/L (97-110); CREATININE 1.08 mg/dl (0.44-1.00); GLUCOSE 173 mg/dl (70-220); POTASSIUM 4.6 mmol/L (3.5-5.1); SODIUM 134 mmol/L (135-144); TOTAL PROTEIN 5.1 g/dl (6.1-8.1)
[2018-02-22 06:36] LABS: CREATINE KINASE 89 IU/L (23-200)
[2018-02-22 06:42] LABS: CK INDEX 1.4; CK-MB 1.24 ng/ml (0.0-2.4)
[2018-02-22 06:45] LABS: D-DIMER > 10000.00 ng/ml (<460)
[2018-02-22 07:29] LABS: FIBRIN SPLIT PRODUCT >40 and <80 ug/ml (<10)
[2018-02-22] MEDS: INSULIN ASPART [NOVOLOG] 3 ML PEN SC ×3 (07:58→17:09)
[2018-02-22] MEDS: DOCUSATE SODIUM 100 MG CAP PO (08:08)
[2018-02-22] MEDS: MEROPENEM 500MG/50 ML (PMX) 50 ML IVPB (08:08)
[2018-02-22] MEDS: BALSAM PERU/CASTOR OIL 60 GM TUBE TOP (08:09)
[2018-02-22] MEDS ORDERED: BUMETANIDE 1 MG INJ IV (09:00)
[2018-02-22] MEDS: FUROSEMIDE 20 MG TAB PO (09:06)
[2018-02-22 15:06] LABS: CREATININE, RANDOM URINE 11 mg/dL (20-275); MICROALBUMIN 1.4 mg/dL; MICROALBUMIN/CREATININE RATIO 127 (<30)
[2018-02-22] MEDS: LACTULOSE 30ML CUP PO ×2 (16:35→20:56)
[2018-02-22 18:07] LABS: ANA SCREEN NEGATIVE (NEGATIVE)
[2018-02-22] MEDS ORDERED: LACTULOSE 30ML CUP PO (22:00)
[2018-02-23] MEDS: IPRATROPIUM (NEB) 0.5 MG/2.5 ML AMP NEB ×6 (01:59→21:00)
[2018-02-23] MEDS: ACCU-CHEK XX (02:00)
[2018-02-23 06:07] LABS: ADD MAN DIFF? NO
[2018-02-23 06:22] LABS: PLATELET COUNT 58 10^3/UL (140-415); WHITE BLOOD COUNT 6.1 10^3/ul (4.8-10.8)
[2018-02-23 06:22] LABS: ABNORMAL IP MESSAGE 1; BASOPHILS % 0.5 % (0.0-2.0); EOSINOPHILS # 0.2 10^3/ul (0.0-0.5); EOSINOPHILS % 3.1 % (0.0-7.0); HEMATOCRIT 39.1 % (37.0-47.0); HEMOGLOBIN 13.4 g/dl (12.0-16.0); LYMPHOCYTES # 1.5 10^3/ul (0.8-2.9); LYMPHOCYTES % 24.1 % (15.0-51.0); MEAN CORPUSCULAR HEMOGLOBIN 29.3 pg (29.0-33.0); MEAN CORPUSCULAR HGB CONC 34.3 g/dl (32.0-37.0); MEAN CORPUSCULAR VOLUME 85.4 fl (82.0-101.0); MONOCYTE # 0.6 10^3/ul (0.3-0.9); MONOCYTES % 9.3 % (0.0-11.0); NEUTROPHIL # 3.8 10^3/ul (1.6-7.5); NUCLEATED RED BLOOD CELLS # 0.1 10^3/ul (0.0-0.0); NUCLEATED RED BLOOD CELLS% 1.6 /100WBC (0.0-0.0); PLATELET COUNT 55 10^3/UL (140-415); RED BLOOD COUNT 4.58 10^6/ul (4.20-5.40); RED CELL DISTRIBUTION WIDTH 20.5 % (11.5-14.5)
[2018-02-23 06:34] LABS: ALANINE AMINOTRANSFERASE 84 IU/L (13-69); ALBUMIN 2.4 g/dl (3.3-4.9); ALKALINE PHOSPHATASE 154 IU/L (42-121); ANION GAP 4 (5-13); ASPARTATE AMINO TRANSFERASE 86 IU/L (15-46); BILIRUBIN,INDIRECT 2.2 mg/dl (0-1.1); BILIRUBIN,TOTAL 2.8 mg/dl (0.2-1.3); BLOOD UREA NITROGEN 49 mg/dl (7-20); CALCIUM 8.2 mg/dl (8.4-10.2); CARBON DIOXIDE 33 mmol/L (21-31); CHLORIDE 100 mmol/L (97-110); CREATININE 1.05 mg/dl (0.44-1.00); GLUCOSE 105 mg/dl (70-220); INR 1.47; POTASSIUM 3.9 mmol/L (3.5-5.1); PROTIME 18.1 Sec (11.9-14.9); PT RATIO 1.4; SODIUM 137 mmol/L (135-144); TOTAL PROTEIN 4.8 g/dl (6.1-8.1)
[2018-02-23 06:36] LABS: POSITIVE DIFF @See below
[2018-02-23 06:39] LABS: THROMBIN TIME 17.2 SEC (13.8-19.1)
[2018-02-23] MEDS: PANTOPRAZOLE 40 MG INJ IV (06:39)
[2018-02-23] MEDS: SPIRONOLACTONE 25 MG TAB PO (06:42)
[2018-02-23 07:03] LABS: FIBRIN SPLIT PRODUCT >80 and <160 ug/ml (<10)
[2018-02-23 07:06] LABS: D-DIMER > 10000.00 ng/ml (<460)
[2018-02-23 07:08] LABS: PHOSPHORUS 3.5 mg/dl (2.5-4.9)
[2018-02-23] MEDS: INSULIN ASPART [NOVOLOG] 3 ML PEN SC ×3 (07:25→16:56)
[2018-02-23] MEDS: FUROSEMIDE 20 MG TAB PO (08:09)
[2018-02-23] MEDS: LINAGLIPTIN 5 MG TABLET PO (08:09)
[2018-02-23] MEDS: BALSAM PERU/CASTOR OIL 60 GM TUBE TOP (08:10)
[2018-02-23] MEDS: LACTULOSE 30ML CUP PO ×3 (08:10→21:00)
[2018-02-23 08:38] LABS: LACTATE DEHYDROGENASE 1305 IU/L (313-618)
[2018-02-23 13:46] LABS: MITOCHONDRIAL TB NEGATIVE (NEGATIVE); SMOOTH MUSCLE AB SCREEN POSITIVE (NEGATIVE)
[2018-02-23 14:31] LABS: WEST NILE VIRUS ANTIBODY (IGG) 3.79 index; WEST NILE VIRUS ANTIBODY (IGM) <0.90 index
[2018-02-24] MEDS: IPRATROPIUM (NEB) 0.5 MG/2.5 ML AMP NEB ×6 (01:00→20:00)
[2018-02-24] MEDS: ACCU-CHEK XX (02:00)
[2018-02-24 06:28] LABS: ADD MAN DIFF? NO
[2018-02-24] MEDS: PANTOPRAZOLE 40 MG INJ IV (06:32)
[2018-02-24] MEDS: SPIRONOLACTONE 25 MG TAB PO (06:33)
[2018-02-24 06:40] LABS: PLATELET COUNT 73 10^3/UL (140-415)
[2018-02-24 06:54] LABS: ABNORMAL IP MESSAGE 1; BASOPHILS % 0.5 % (0.0-2.0); EOSINOPHILS # 0.1 10^3/ul (0.0-0.5); LYMPHOCYTES # 1.5 10^3/ul (0.8-2.9); LYMPHOCYTES % 24.3 % (15.0-51.0); MEAN CORPUSCULAR HEMOGLOBIN 29.3 pg (29.0-33.0); MEAN CORPUSCULAR HGB CONC 34.2 g/dl (32.0-37.0); MEAN CORPUSCULAR VOLUME 85.8 fl (82.0-101.0); MEAN PLATELET VOLUME 11.8 fl (7.4-10.4); MONOCYTE # 0.6 10^3/ul (0.3-0.9); MONOCYTES % 9.6 % (0.0-11.0); NEUTROPHIL # 3.8 10^3/ul (1.6-7.5); NEUTROPHILS % 62.1 % (39.0-77.0); NUCLEATED RED BLOOD CELLS # 0.1 10^3/ul (0.0-0.0); PLATELET COUNT 70 10^3/UL (140-415); RED BLOOD COUNT 4.43 10^6/ul (4.20-5.40); RED CELL DISTRIBUTION WIDTH 20.7 % (11.5-14.5)
[2018-02-24 06:58] LABS: POSITIVE DIFF @See below
[2018-02-24 07:00] LABS: PARTIAL THROMBOPLASTIN TIME 30.6 Sec (23.0-35.0)
[2018-02-24 07:03] LABS: INR 1.28; PROTIME 16.2 Sec (11.9-14.9); PT RATIO 1.3
[2018-02-24 07:04] LABS: THROMBIN TIME 16.4 SEC (13.8-19.1)
[2018-02-24 07:22] LABS: PHOSPHORUS 3.3 mg/dl (2.5-4.9)
[2018-02-24 07:22] LABS: MAGNESIUM 1.9 mg/dl (1.7-2.5)
[2018-02-24] MEDS: INSULIN ASPART [NOVOLOG] 3 ML PEN SC ×3 (07:25→17:25)
[2018-02-24 07:26] LABS: ALANINE AMINOTRANSFERASE 73 IU/L (13-69); ALBUMIN 2.4 g/dl (3.3-4.9); ALKALINE PHOSPHATASE 165 IU/L (42-121); ANION GAP 7 (5-13); ASPARTATE AMINO TRANSFERASE 67 IU/L (15-46); BILIRUBIN,INDIRECT 1.9 mg/dl (0-1.1); BILIRUBIN,TOTAL 1.9 mg/dl (0.2-1.3); BLOOD UREA NITROGEN 49 mg/dl (7-20); CALCIUM 8.1 mg/dl (8.4-10.2); CARBON DIOXIDE 32 mmol/L (21-31); CHLORIDE 99 mmol/L (97-110); CREATININE 0.96 mg/dl (0.44-1.00); GLUCOSE 103 mg/dl (70-220); POTASSIUM 3.6 mmol/L (3.5-5.1); SODIUM 138 mmol/L (135-144); TOTAL PROTEIN 4.8 g/dl (6.1-8.1)
[2018-02-24 07:36] LABS: D-DIMER > 10000.00 ng/ml (<460)
[2018-02-24] MEDS: FUROSEMIDE 20 MG TAB PO (08:08)
[2018-02-24] MEDS: LINAGLIPTIN 5 MG TABLET PO (08:08)
[2018-02-24] MEDS: LACTULOSE 30ML CUP PO ×3 (08:09→20:33)
[2018-02-24] MEDS: BALSAM PERU/CASTOR OIL 60 GM TUBE TOP (08:09)
[2018-02-24] MEDS: ATORVASTATIN 20 MG TAB PO (20:32)
[2018-02-24 23:02] LABS: CRYPTOCOCCAL ANTIGEN - SOURCE SERUM
[2018-02-25] MEDS: IPRATROPIUM (NEB) 0.5 MG/2.5 ML AMP NEB ×6 (01:14→20:19)
[2018-02-25] MEDS: ACCU-CHEK XX (02:00)
[2018-02-25] MEDS: PANTOPRAZOLE 40 MG INJ IV (05:46)
[2018-02-25] MEDS: SPIRONOLACTONE 25 MG TAB PO (05:46)
[2018-02-25] MEDS: INSULIN ASPART [NOVOLOG] 3 ML PEN SC ×3 (07:25→17:15)
[2018-02-25 07:31] LABS: PLATELET COUNT 90 10^3/UL (140-415)
[2018-02-25 07:45] LABS: PHOSPHORUS 3.3 mg/dl (2.5-4.9)
[2018-02-25 07:45] LABS: MAGNESIUM 1.8 mg/dl (1.7-2.5)
[2018-02-25 07:47] LABS: ALANINE AMINOTRANSFERASE 62 IU/L (13-69); ALBUMIN 2.5 g/dl (3.3-4.9); ALKALINE PHOSPHATASE 151 IU/L (42-121); ANION GAP 7 (5-13); ASPARTATE AMINO TRANSFERASE 60 IU/L (15-46); BILIRUBIN,INDIRECT 1.8 mg/dl (0-1.1); BILIRUBIN,TOTAL 1.8 mg/dl (0.2-1.3); BLOOD UREA NITROGEN 46 mg/dl (7-20); CARBON DIOXIDE 30 mmol/L (21-31); CHLORIDE 100 mmol/L (97-110); GLUCOSE 110 mg/dl (70-220); POTASSIUM 3.8 mmol/L (3.5-5.1); SODIUM 137 mmol/L (135-144)
[2018-02-25 07:51] LABS: INR 1.19; PROTIME 15.3 Sec (11.9-14.9); PT RATIO 1.2
[2018-02-25 07:52] LABS: PARTIAL THROMBOPLASTIN TIME 31.1 Sec (23.0-35.0)
[2018-02-25 08:04] LABS: FIBRIN SPLIT PRODUCT >40 and <80 ug/ml (<10)
[2018-02-25 08:24] LABS: D-DIMER > 10000.00 ng/ml (<460)
[2018-02-25] MEDS: FUROSEMIDE 20 MG TAB PO (08:44)
[2018-02-25] MEDS: LACTULOSE 30ML CUP PO (08:44)
[2018-02-25] MEDS: LINAGLIPTIN 5 MG TABLET PO (08:45)
[2018-02-25] MEDS: BALSAM PERU/CASTOR OIL 60 GM TUBE TOP (08:45)
[2018-02-25] MEDS: GUAIFENESIN/DM 5ML CUP PO (08:48)
[2018-02-25] MEDS: ATORVASTATIN 20 MG TAB PO (20:49)
[2018-02-26] MEDS: IPRATROPIUM (NEB) 0.5 MG/2.5 ML AMP NEB ×6 (01:20→21:04)
[2018-02-26] MEDS: LEVALBUTEROL (NEB) 0.63 MG/3 ML AMP HHN (01:20)
[2018-02-26] MEDS: ACCU-CHEK XX (02:00)
[2018-02-26] MEDS: SPIRONOLACTONE 25 MG TAB PO (05:40)
[2018-02-26] MEDS: PANTOPRAZOLE 40 MG INJ IV (05:40)
[2018-02-26] MEDS: INSULIN ASPART [NOVOLOG] 3 ML PEN SC ×3 (09:02→17:19)
[2018-02-26] MEDS: FUROSEMIDE 20 MG TAB PO (09:24)
[2018-02-26] MEDS: LINAGLIPTIN 5 MG TABLET PO (09:25)
[2018-02-26] MEDS: BALSAM PERU/CASTOR OIL 60 GM TUBE TOP (09:25)
[2018-02-26 09:44] LABS: ADD MAN DIFF? NO
[2018-02-26 09:50] LABS: BASOPHIL # 0.1 10^3/ul (0.0-0.1); BASOPHILS % 1.2 % (0.0-2.0); EOSINOPHILS # 0.2 10^3/ul (0.0-0.5); EOSINOPHILS % 2.5 % (0.0-7.0); HEMATOCRIT 38.9 % (37.0-47.0); HEMOGLOBIN 13.1 g/dl (12.0-16.0); LYMPHOCYTES # 1.5 10^3/ul (0.8-2.9); LYMPHOCYTES % 25.4 % (15.0-51.0); MEAN CORPUSCULAR HEMOGLOBIN 29.6 pg (29.0-33.0); MEAN CORPUSCULAR HGB CONC 33.7 g/dl (32.0-37.0); MEAN CORPUSCULAR VOLUME 87.8 fl (82.0-101.0); MONOCYTE # 0.5 10^3/ul (0.3-0.9); MONOCYTES % 7.5 % (0.0-11.0); NEUTROPHIL # 3.7 10^3/ul (1.6-7.5); NEUTROPHILS % 61.9 % (39.0-77.0); PLATELET COUNT 108 10^3/UL (140-415); RED BLOOD COUNT 4.43 10^6/ul (4.20-5.40); RED CELL DISTRIBUTION WIDTH 21.6 % (11.5-14.5)
[2018-02-26 10:15] LABS: INR 1.13; PROTIME 14.7 Sec (11.9-14.9); PT RATIO 1.1
[2018-02-26 10:16] LABS: PARTIAL THROMBOPLASTIN TIME 29.4 Sec (23.0-35.0); THROMBIN TIME 16.4 SEC (13.8-19.1)
[2018-02-26 10:27] LABS: ALANINE AMINOTRANSFERASE 59 IU/L (13-69); ALBUMIN 2.4 g/dl (3.3-4.9); ALBUMIN/GLOBULIN RATIO 1.04; ALKALINE PHOSPHATASE 149 IU/L (42-121); ANION GAP 10 (5-13); ASPARTATE AMINO TRANSFERASE 70 IU/L (15-46); BLOOD UREA NITROGEN 43 mg/dl (7-20); CALCIUM 8.1 mg/dl (8.4-10.2); CARBON DIOXIDE 30 mmol/L (21-31); CHLORIDE 100 mmol/L (97-110); CREATININE 0.84 mg/dl (0.44-1.00); GLUCOSE 131 mg/dl (70-220); POTASSIUM 3.9 mmol/L (3.5-5.1); SODIUM 140 mmol/L (135-144); TOTAL PROTEIN 4.7 g/dl (6.1-8.1)
[2018-02-26 10:30] LABS: PLATELET COUNT 108 10^3/UL (140-415)
[2018-02-26 10:30] LABS: FIBRIN SPLIT PRODUCT >10 and <40 ug/ml (<10)
[2018-02-26 11:11] LABS: D-DIMER > 10000.00 ng/ml (<460)
[2018-02-26] MEDS: ATORVASTATIN 20 MG TAB PO (21:00)
[2018-02-27] MEDS: IPRATROPIUM (NEB) 0.5 MG/2.5 ML AMP NEB ×6 (01:00→20:13)
[2018-02-27] MEDS: ACCU-CHEK XX (01:50)
[2018-02-27 06:30] LABS: ADD MAN DIFF? NO
[2018-02-27] MEDS: PANTOPRAZOLE 40 MG INJ IV (06:37)
[2018-02-27] MEDS: SPIRONOLACTONE 25 MG TAB PO (06:37)
[2018-02-27 06:40] LABS: ABNORMAL IP MESSAGE 1; BASOPHIL # 0.1 10^3/ul (0.0-0.1); EOSINOPHILS # 0.1 10^3/ul (0.0-0.5); HEMATOCRIT 39.2 % (37.0-47.0); HEMOGLOBIN 13.5 g/dl (12.0-16.0); LYMPHOCYTES # 1.7 10^3/ul (0.8-2.9); LYMPHOCYTES % 24.7 % (15.0-51.0); MEAN CORPUSCULAR HEMOGLOBIN 29.8 pg (29.0-33.0); MEAN CORPUSCULAR HGB CONC 34.4 g/dl (32.0-37.0); MEAN CORPUSCULAR VOLUME 86.5 fl (82.0-101.0); MEAN PLATELET VOLUME 12.7 fl (7.4-10.4); MONOCYTE # 0.5 10^3/ul (0.3-0.9); MONOCYTES % 6.8 % (0.0-11.0); NEUTROPHIL # 4.5 10^3/ul (1.6-7.5); NEUTROPHILS % 64.5 % (39.0-77.0); PLATELET COUNT 99 10^3/UL (140-415); RED BLOOD COUNT 4.53 10^6/ul (4.20-5.40); RED CELL DISTRIBUTION WIDTH 21.9 % (11.5-14.5)
[2018-02-27 06:40] LABS: WHITE BLOOD COUNT 6.9 10^3/ul (4.8-10.8)
[2018-02-27 06:51] LABS: INR 1.09; PROTIME 14.3 Sec (11.9-14.9); PT RATIO 1.1
[2018-02-27 06:52] LABS: PARTIAL THROMBOPLASTIN TIME 24.8 Sec (23.0-35.0); THROMBIN TIME 15.4 SEC (13.8-19.1)
[2018-02-27 06:56] LABS: POSITIVE DIFF @See below
[2018-02-27 07:13] LABS: PLATELET COUNT 82 10^3/UL (140-415)
[2018-02-27 07:23] LABS: ALANINE AMINOTRANSFERASE 54 IU/L (13-69); ALBUMIN 2.6 g/dl (3.3-4.9); ALBUMIN/GLOBULIN RATIO 0.96; ALKALINE PHOSPHATASE 142 IU/L (42-121); ANION GAP 9 (5-13); ASPARTATE AMINO TRANSFERASE 72 IU/L (15-46); BILIRUBIN,INDIRECT 1.3 mg/dl (0-1.1); BILIRUBIN,TOTAL 1.3 mg/dl (0.2-1.3); BLOOD UREA NITROGEN 42 mg/dl (7-20); CALCIUM 8.1 mg/dl (8.4-10.2); CARBON DIOXIDE 27 mmol/L (21-31); CHLORIDE 102 mmol/L (97-110); CREATININE 0.83 mg/dl (0.44-1.00); GLUCOSE 111 mg/dl (70-220); POTASSIUM 4.8 mmol/L (3.5-5.1); SODIUM 138 mmol/L (135-144); TOTAL PROTEIN 5.3 g/dl (6.1-8.1)
[2018-02-27 07:25] LABS: D-DIMER > 10000.00 ng/ml (<460)
[2018-02-27 08:46] LABS: FIBRIN SPLIT PRODUCT >10 and <40 ug/ml (<10)
[2018-02-27] MEDS: INSULIN ASPART [NOVOLOG] 3 ML PEN SC ×3 (08:46→17:15)
[2018-02-27] MEDS: FUROSEMIDE 20 MG TAB PO (08:55)
[2018-02-27] MEDS: BALSAM PERU/CASTOR OIL 60 GM TUBE TOP (08:57)
[2018-02-27] MEDS: LINAGLIPTIN 5 MG TABLET PO (08:57)
[2018-02-27] MEDS: MAGNESIUM SULFATE 2 GM/50 ML 50 ML IVPB (11:23)
[2018-02-27] MEDS: LACTULOSE 30ML CUP PO (11:23)
[2018-02-27 13:37] LABS: PROCALCITONIN 0.27 ng/mL (<0.10)
[2018-02-27] MEDS: ATORVASTATIN 20 MG TAB PO (20:49)
[2018-02-28] MEDS: IPRATROPIUM (NEB) 0.5 MG/2.5 ML AMP NEB ×6 (00:35→20:54)
[2018-02-28] MEDS: ACCU-CHEK XX (02:00)
[2018-02-28] MEDS: SPIRONOLACTONE 25 MG TAB PO (05:59)
[2018-02-28] MEDS: PANTOPRAZOLE 40 MG INJ IV (05:59)
[2018-02-28 06:21] LABS: ADD MAN DIFF? NO
[2018-02-28 06:35] LABS: WHITE BLOOD COUNT 5.7 10^3/ul (4.8-10.8)
[2018-02-28 06:35] LABS: BASOPHIL # 0.1 10^3/ul (0.0-0.1); BASOPHILS % 0.9 % (0.0-2.0); EOSINOPHILS # 0.1 10^3/ul (0.0-0.5); EOSINOPHILS % 2.1 % (0.0-7.0); HEMATOCRIT 37.2 % (37.0-47.0); HEMOGLOBIN 12.6 g/dl (12.0-16.0); LYMPHOCYTES # 1.6 10^3/ul (0.8-2.9); LYMPHOCYTES % 28.1 % (15.0-51.0); MEAN CORPUSCULAR HEMOGLOBIN 29.8 pg (29.0-33.0); MEAN CORPUSCULAR HGB CONC 33.9 g/dl (32.0-37.0); MEAN CORPUSCULAR VOLUME 87.9 fl (82.0-101.0); MEAN PLATELET VOLUME 10.5 fl (7.4-10.4); MONOCYTE # 0.5 10^3/ul (0.3-0.9); MONOCYTES % 8.1 % (0.0-11.0); NEUTROPHIL # 3.4 10^3/ul (1.6-7.5); NEUTROPHILS % 59.6 % (39.0-77.0); PLATELET COUNT 132 10^3/UL (140-415); RED BLOOD COUNT 4.23 10^6/ul (4.20-5.40); RED CELL DISTRIBUTION WIDTH 21.6 % (11.5-14.5)
[2018-02-28 06:39] LABS: PLATELET COUNT 129 10^3/UL (140-415)
[2018-02-28 06:47] LABS: INR 1.21; PROTIME 15.5 Sec (11.9-14.9); PT RATIO 1.2
[2018-02-28 06:48] LABS: THROMBIN TIME 16.9 SEC (13.8-19.1)
[2018-02-28 06:52] LABS: AMMONIA 25 umol/l (9-30)
[2018-02-28 07:08] LABS: D-DIMER 9735.65 ng/ml (<460)
[2018-02-28 07:23] LABS: ALANINE AMINOTRANSFERASE 58 IU/L (13-69); ALBUMIN 2.5 g/dl (3.3-4.9); ALKALINE PHOSPHATASE 158 IU/L (42-121); ANION GAP 8 (5-13); ASPARTATE AMINO TRANSFERASE 61 IU/L (15-46); BLOOD UREA NITROGEN 41 mg/dl (7-20); CARBON DIOXIDE 32 mmol/L (21-31); CHLORIDE 100 mmol/L (97-110); CREATININE 0.89 mg/dl (0.44-1.00); GLUCOSE 105 mg/dl (70-220); POTASSIUM 4.2 mmol/L (3.5-5.1); SODIUM 140 mmol/L (135-144)
[2018-02-28] MEDS: INSULIN ASPART [NOVOLOG] 3 ML PEN SC ×3 (07:25→17:11)
[2018-02-28] MEDS ORDERED: DIPHENHYDRAMINE 25 MG CAP PO (08:00)
[2018-02-28 09:00] LABS: FIBRIN SPLIT PRODUCT >10 and <40 ug/ml (<10)
[2018-02-28] MEDS: LACTULOSE 30ML CUP PO (09:51)
[2018-02-28] MEDS: LINAGLIPTIN 5 MG TABLET PO (09:51)
[2018-02-28] MEDS: BALSAM PERU/CASTOR OIL 60 GM TUBE TOP (09:52)
[2018-02-28] MEDS: FUROSEMIDE 20 MG TAB PO (09:52)
[2018-02-28] MEDS: ATORVASTATIN 20 MG TAB PO (20:17)
[2018-03-01] MEDS ORDERED: PAROXETINE 20 MG TAB PO (09:00)
== END 2018-02-28 21:30 | DRG 871 ==
LOC: TEL 02-21 01:00 → ICU 02-17 05:43 → E/R 15:00 → ICU 19:46
PROVIDERS: Family Medicine
PROC: 5A09357 Assistance with Respiratory Ventilation, Less than 24 Consecutive Hours, Continuous Positive Airway Pressure (ICD-10-PCS; principal; 2018-02-16)
PROC: 02HV33Z Insertion of Infusion Device into Superior Vena Cava, Percutaneous Approach (ICD-10-PCS; 2018-02-17)
PROC: 30233K1 Transfusion of Nonautologous Frozen Plasma into Peripheral Vein, Percutaneous Approach (ICD-10-PCS; 2018-02-17)
PROC: 07DR3ZX Extraction of Iliac Bone Marrow, Percutaneous Approach, Diagnostic (ICD-10-PCS; 2018-02-19)
DX: A41.9 Sepsis, unspecified organism (principal); R65.21 Severe sepsis with septic shock; J18.9 Pneumonia, unspecified organism; K72.00 Acute and subacute hepatic failure without coma; I21.A1 Myocardial infarction type 2; J96.01 Acute respiratory failure with hypoxia; N17.0 Acute kidney failure with tubular necrosis; I50.21 Acute systolic (congestive) heart failure; K83.1 Obstruction of bile duct; R57.0 Cardiogenic shock; D65 Disseminated intravascular coagulation [defibrination syndrome]; E87.4 Mixed disorder of acid-base balance; I42.9 Cardiomyopathy, unspecified; K81.0 Acute cholecystitis; I13.0 Hypertensive heart and chronic kidney disease with heart failure and stage 1 through stage 4 chronic kidney disease, or unspecified chronic kidney disease; E87.1 Hypo-osmolality and hyponatremia; E87.2 Acidosis; G93.40 Encephalopathy, unspecified; E03.9 Hypothyroidism, unspecified; E11.22 Type 2 diabetes mellitus with diabetic chronic kidney disease; N18.9 Chronic kidney disease, unspecified; I25.10 Atherosclerotic heart disease of native coronary artery without angina pectoris; E78.5 Hyperlipidemia, unspecified; I48.91 Unspecified atrial fibrillation; E11.649 Type 2 diabetes mellitus with hypoglycemia without coma; E87.5 Hyperkalemia; T68.XXXA Hypothermia, initial encounter; Y95 Nosocomial condition; D69.6 Thrombocytopenia, unspecified; R60.0 Localized edema; E83.9 Disorder of mineral metabolism, unspecified; D64.9 Anemia, unspecified; F32.9 Major depressive disorder, single episode, unspecified; K74.60 Unspecified cirrhosis of liver; R74.0 Nonspecific elevation of levels of transaminase and lactic acid dehydrogenase [LDH]; I49.5 Sick sinus syndrome; E13.69 Other specified diabetes mellitus with other specified complication; E07.81 Sick-euthyroid syndrome; I25.5 Ischemic cardiomyopathy; R53.81 Other malaise; Z91.19 Patient's noncompliance with other medical treatment and regimen; Z88.0 Allergy status to penicillin; Z95.5 Presence of coronary angioplasty implant and graft
CPT/HCPCS: 36415; 36430; 36569; 36600; 70450; 71045; 71250; 74176; 76705; 76775; 76937; 77012; 80048; 80053; 80202; 80307; 81001; 81003; 82043; 82140; 82533; 82550; 82553; 82570; 82787; 82803; 82962; 83010; 83036; 83605; 83615; 83735; 83880; 83930; 83935; 84100; 84145; 84155; 84300; 84436; 84439; 84443; 84479; 84481; 84484; 85025; 85045; 85049; 85362; 85378; 85384; 85610; 85670; 85730; 86038; 86140; 86255; 86376; 86635; 86641; 86644; 86703; 86704; 86706; 86709; 86788; 86789; 86803; 86850; 86900; 86901; 87040; 87081; 87086; 87340; 87400; 88305; 88311; 88313; 92526; 92610; 93005; 93306; 93970; 94640; 94660; 94664; 96365; 96366; 96368; 97110; 97116; 97163; 97165; 97530; 97535; 99291-25

== ENCOUNTER 2018-02-28 21:13 | Inpatient (IN) | payer MEDICARE, OTHER ==
[2018-02-28] MEDS ORDERED: GLUCOSE GEL 15 GRAM TUBE BUCCAL (22:40)
[2018-02-28] MEDS ORDERED: GUAIFENESIN/DM 5ML CUP PO (22:40)
[2018-02-28] MEDS ORDERED: ACETAMINOPHEN 650 MG SUPP PR (22:40)
[2018-02-28] MEDS ORDERED: ONDANSETRON 4 MG INJ IV (22:40)
[2018-02-28] MEDS ORDERED: GLUCAGON 1 MG INJ IM (22:40)
[2018-02-28] MEDS ORDERED: BISACODYL (EC) 5 MG TAB PO (22:40)
[2018-02-28] MEDS ORDERED: DOCUSATE SODIUM 100 MG CAP PO (22:40)
[2018-02-28] MEDS ORDERED: GLUCOSE GEL 15 GRAM TUBE PO ×2 (22:40)
[2018-02-28] MEDS ORDERED: DEXTROSE 50% 50 ML SYRINGE IV ×2 (22:40)
[2018-02-28] MEDS ORDERED: LEVALBUTEROL (NEB) 0.63 MG/3 ML AMP HHN (22:40)
[2018-03-01] MEDS: DIPHENHYDRAMINE 25 MG CAP PO (03:23)
[2018-03-01] MEDS: IPRATROPIUM (NEB) 0.5 MG/2.5 ML AMP NEB ×6 (05:00→20:58)
[2018-03-01] MEDS: SPIRONOLACTONE 25 MG TAB PO (06:00)
[2018-03-01] MEDS: PANTOPRAZOLE 40 MG INJ IV (06:00)
[2018-03-01] MEDS: INSULIN ASPART [NOVOLOG] 3 ML PEN SC ×3 (07:05→16:58)
[2018-03-01] MEDS: LINAGLIPTIN 5 MG TABLET PO (08:59)
[2018-03-01] MEDS: FUROSEMIDE 20 MG TAB PO (08:59)
[2018-03-01] MEDS: PAROXETINE 20 MG TAB PO (08:59)
[2018-03-01] MEDS: BALSAM PERU/CASTOR OIL 60 GM TUBE TOP (09:00)
[2018-03-01] MEDS: LACTULOSE 30ML CUP PO (09:00)
[2018-03-01 14:01] LABS: ADD MAN DIFF? NO
[2018-03-01 14:02] LABS: WHITE BLOOD COUNT 5.4 10^3/ul (4.8-10.8)
[2018-03-01 14:02] LABS: ABNORMAL IP MESSAGE 1; BASOPHIL # 0.1 10^3/ul (0.0-0.1); BASOPHILS % 0.9 % (0.0-2.0); EOSINOPHILS # 0.1 10^3/ul (0.0-0.5); EOSINOPHILS % 2.4 % (0.0-7.0); HEMATOCRIT 37.3 % (37.0-47.0); HEMOGLOBIN 12.8 g/dl (12.0-16.0); LYMPHOCYTES % 19.3 % (15.0-51.0); MEAN CORPUSCULAR HEMOGLOBIN 30.2 pg (29.0-33.0); MEAN CORPUSCULAR HGB CONC 34.3 g/dl (32.0-37.0); MEAN PLATELET VOLUME 11.1 fl (7.4-10.4); MONOCYTE # 0.3 10^3/ul (0.3-0.9); MONOCYTES % 5.6 % (0.0-11.0); NEUTROPHIL # 3.8 10^3/ul (1.6-7.5); NEUTROPHILS % 70.7 % (39.0-77.0); PLATELET COUNT 145 10^3/UL (140-415); RED BLOOD COUNT 4.24 10^6/ul (4.20-5.40); RED CELL DISTRIBUTION WIDTH 22.2 % (11.5-14.5)
[2018-03-01 14:04] LABS: POSITIVE DIFF @See below
[2018-03-01 14:23] LABS: ALANINE AMINOTRANSFERASE 52 IU/L (13-69); ALBUMIN 2.7 g/dl (3.3-4.9); ALBUMIN/GLOBULIN RATIO 1.22; ALKALINE PHOSPHATASE 134 IU/L (42-121); ANION GAP 7 (5-13); ASPARTATE AMINO TRANSFERASE 52 IU/L (15-46); BILIRUBIN,INDIRECT 0.8 mg/dl (0-1.1); BILIRUBIN,TOTAL 0.8 mg/dl (0.2-1.3); BLOOD UREA NITROGEN 45 mg/dl (7-20); CARBON DIOXIDE 27 mmol/L (21-31); CHLORIDE 101 mmol/L (97-110); CREATININE 0.93 mg/dl (0.44-1.00); GLUCOSE 180 mg/dl (70-220); POTASSIUM 4.7 mmol/L (3.5-5.1); SODIUM 135 mmol/L (135-144); TOTAL PROTEIN 4.9 g/dl (6.1-8.1)
[2018-03-01 14:39] LABS: ADD UMIC YES; UR ASCORBIC ACID 40 mg/dL (NEGATIVE); UR BACTERIA FEW /HPF (NONE SEEN); UR BILIRUBIN (Dip) NEGATIVE (NEGATIVE); UR BLOOD (Dip) 2+ mg/dL (NEGATIVE); UR CALCIUM OXALATE CRYSTAL MODERATE /HPF (NONE SEEN); UR CLARITY SLIGHTLY CLOUDY (CLEAR); UR COLOR AMBER (YELLOW); UR GLUCOSE (Dip) NEGATIVE (NEGATIVE); UR KETONES (Dip) NEGATIVE (NEGATIVE); UR LEUKOCYTE ESTERASE (Dip) NEGATIVE Leu/ul (NEGATIVE); UR MUCUS FEW /HPF (NONE SEEN); UR NITRITE (Dip) NEGATIVE (NEGATIVE); UR RBC 178 /HPF (0-5); UR SPECIFIC GRAVITY (Dip) 1.016 (1.003-1.030); UR TOTAL PROTEIN (Dip) NEGATIVE (NEGATIVE); UR UROBILINOGEN (Dip) 2+ mg/dL (NEGATIVE); UR WBC 6 /HPF (0-5)
[2018-03-01] MEDS: ATORVASTATIN 20 MG TAB PO (21:00)
[2018-03-02] MEDS: IPRATROPIUM (NEB) 0.5 MG/2.5 ML AMP NEB ×6 (00:34→20:50)
[2018-03-02] MEDS: PANTOPRAZOLE 40 MG INJ IV (06:11)
[2018-03-02] MEDS: SPIRONOLACTONE 25 MG TAB PO (06:12)
[2018-03-02] MEDS: INSULIN ASPART [NOVOLOG] 3 ML PEN SC ×3 (07:05→16:47)
[2018-03-02] MEDS: LACTULOSE 30ML CUP PO (09:31)
[2018-03-02] MEDS: PAROXETINE 20 MG TAB PO (09:31)
[2018-03-02] MEDS: BALSAM PERU/CASTOR OIL 60 GM TUBE TOP (09:31)
[2018-03-02] MEDS: FUROSEMIDE 20 MG TAB PO ×2 (09:31→18:18)
[2018-03-02] MEDS: LINAGLIPTIN 5 MG TABLET PO (09:31)
[2018-03-02] MEDS: ATORVASTATIN 20 MG TAB PO (21:02)
[2018-03-03] MEDS: IPRATROPIUM (NEB) 0.5 MG/2.5 ML AMP NEB ×6 (01:23→20:41)
[2018-03-03] MEDS: SPIRONOLACTONE 25 MG TAB PO (06:25)
[2018-03-03] MEDS: FUROSEMIDE 20 MG TAB PO ×2 (06:26→17:40)
[2018-03-03] MEDS: PANTOPRAZOLE 40 MG INJ IV (06:26)
[2018-03-03] MEDS: INSULIN ASPART [NOVOLOG] 3 ML PEN SC ×3 (07:05→17:42)
[2018-03-03] MEDS: LACTULOSE 30ML CUP PO (08:53)
[2018-03-03] MEDS: PAROXETINE 20 MG TAB PO (08:53)
[2018-03-03] MEDS: LINAGLIPTIN 5 MG TABLET PO (08:53)
[2018-03-03] MEDS: LISINOPRIL 5 MG TAB PO (08:53)
[2018-03-03] MEDS: BALSAM PERU/CASTOR OIL 60 GM TUBE TOP (08:54)
[2018-03-03] MEDS: FOSFOMYCIN 3 GM PACKET PO (17:05)
[2018-03-03] MEDS: ATORVASTATIN 20 MG TAB PO (20:56)
[2018-03-04] MEDS: IPRATROPIUM (NEB) 0.5 MG/2.5 ML AMP NEB ×6 (01:00→21:32)
[2018-03-04] MEDS: PANTOPRAZOLE 40 MG INJ IV (06:13)
[2018-03-04] MEDS: SPIRONOLACTONE 25 MG TAB PO (06:15)
[2018-03-04] MEDS: FUROSEMIDE 20 MG TAB PO (06:16)
[2018-03-04] MEDS: INSULIN ASPART [NOVOLOG] 3 ML PEN SC ×3 (07:05→17:05)
[2018-03-04 07:47] LABS: ALANINE AMINOTRANSFERASE 48 IU/L (13-69); ALBUMIN 2.9 g/dl (3.3-4.9); ALKALINE PHOSPHATASE 133 IU/L (42-121); ANION GAP 8 (5-13); ASPARTATE AMINO TRANSFERASE 39 IU/L (15-46); BILIRUBIN,INDIRECT 1.2 mg/dl (0-1.1); BILIRUBIN,TOTAL 1.2 mg/dl (0.2-1.3); BLOOD UREA NITROGEN 35 mg/dl (7-20); CALCIUM 8.3 mg/dl (8.4-10.2); CARBON DIOXIDE 30 mmol/L (21-31); CHLORIDE 101 mmol/L (97-110); GLUCOSE 94 mg/dl (70-220); POTASSIUM 4.1 mmol/L (3.5-5.1); SODIUM 139 mmol/L (135-144); TOTAL PROTEIN 5.3 g/dl (6.1-8.1)
[2018-03-04 08:20] LABS: ALPHA FETOPROTEIN 2.57 IU/L (0.00-7.21)
[2018-03-04] MEDS: PAROXETINE 20 MG TAB PO (09:00)
[2018-03-04] MEDS: LISINOPRIL 5 MG TAB PO (09:01)
[2018-03-04] MEDS: LACTULOSE 30ML CUP PO (09:01)
[2018-03-04] MEDS: BALSAM PERU/CASTOR OIL 60 GM TUBE TOP (09:02)
[2018-03-04] MEDS: LINAGLIPTIN 5 MG TABLET PO (09:02)
[2018-03-04] MEDS: FUROSEMIDE 40 MG INJ IV (15:19)
[2018-03-04] MEDS: INFLUENZA VIRUS VACCINE 0.5 ML (DISPENSING) IM* (17:39)
[2018-03-04] MEDS: ATORVASTATIN 20 MG TAB PO (21:42)
[2018-03-05] MEDS: IPRATROPIUM (NEB) 0.5 MG/2.5 ML AMP NEB ×6 (01:00→20:29)
[2018-03-05] MEDS: PANTOPRAZOLE 40 MG INJ IV (05:52)
[2018-03-05] MEDS: SPIRONOLACTONE 25 MG TAB PO (05:53)
[2018-03-05] MEDS: INSULIN ASPART [NOVOLOG] 3 ML PEN SC ×3 (07:05→17:05)
[2018-03-05 07:36] LABS: ADD MAN DIFF? NO
[2018-03-05 07:44] LABS: ABNORMAL IP MESSAGE 1; BASOPHIL # 0.1 10^3/ul (0.0-0.1); BASOPHILS % 0.8 % (0.0-2.0); EOSINOPHILS # 0.1 10^3/ul (0.0-0.5); EOSINOPHILS % 1.5 % (0.0-7.0); HEMATOCRIT 35.6 % (37.0-47.0); LYMPHOCYTES # 1.6 10^3/ul (0.8-2.9); LYMPHOCYTES % 26.4 % (15.0-51.0); MEAN CORPUSCULAR HEMOGLOBIN 30.4 pg (29.0-33.0); MEAN CORPUSCULAR HGB CONC 33.7 g/dl (32.0-37.0); MEAN CORPUSCULAR VOLUME 90.1 fl (82.0-101.0); MEAN PLATELET VOLUME 11.3 fl (7.4-10.4); MONOCYTE # 0.4 10^3/ul (0.3-0.9); MONOCYTES % 7.3 % (0.0-11.0); NEUTROPHIL # 3.7 10^3/ul (1.6-7.5); NEUTROPHILS % 63.3 % (39.0-77.0); NUCLEATED RED BLOOD CELLS% 0.3 /100WBC (0.0-0.0); PLATELET COUNT 162 10^3/UL (140-415); RED BLOOD COUNT 3.95 10^6/ul (4.20-5.40)
[2018-03-05 07:44] LABS: WHITE BLOOD COUNT 5.9 10^3/ul (4.8-10.8)
[2018-03-05 07:49] LABS: POSITIVE DIFF @See below
[2018-03-05 08:05] LABS: ANION GAP 7 (5-13); BLOOD UREA NITROGEN 35 mg/dl (7-20); CALCIUM 8.2 mg/dl (8.4-10.2); CARBON DIOXIDE 31 mmol/L (21-31); CHLORIDE 100 mmol/L (97-110); CREATININE 0.96 mg/dl (0.44-1.00); GLUCOSE 97 mg/dl (70-220); POTASSIUM 4.2 mmol/L (3.5-5.1); SODIUM 138 mmol/L (135-144)
[2018-03-05] MEDS: LINAGLIPTIN 5 MG TABLET PO (08:08)
[2018-03-05] MEDS: FUROSEMIDE 20 MG TAB PO ×2 (08:55→17:37)
[2018-03-05] MEDS: LISINOPRIL 5 MG TAB PO (08:56)
[2018-03-05] MEDS: LACTULOSE 30ML CUP PO (08:56)
[2018-03-05] MEDS: BALSAM PERU/CASTOR OIL 60 GM TUBE TOP (08:56)
[2018-03-05] MEDS: PAROXETINE 20 MG TAB PO (21:01)
[2018-03-05] MEDS: ATORVASTATIN 20 MG TAB PO (21:01)
[2018-03-06] MEDS: IPRATROPIUM (NEB) 0.5 MG/2.5 ML AMP NEB ×6 (00:53→20:04)
[2018-03-06] MEDS: PANTOPRAZOLE 40 MG INJ IV (06:39)
[2018-03-06] MEDS: SPIRONOLACTONE 50 MG TAB PO (06:39)
[2018-03-06] MEDS: FUROSEMIDE 20 MG TAB PO ×2 (06:40→17:29)
[2018-03-06] MEDS: INSULIN ASPART [NOVOLOG] 3 ML PEN SC ×3 (07:05→17:28)
[2018-03-06] MEDS: LINAGLIPTIN 5 MG TABLET PO (07:43)
[2018-03-06 08:04] LABS: ANION GAP 6 (5-13); BLOOD UREA NITROGEN 32 mg/dl (7-20); CALCIUM 8.4 mg/dl (8.4-10.2); CARBON DIOXIDE 31 mmol/L (21-31); CHLORIDE 102 mmol/L (97-110); CREATININE 0.98 mg/dl (0.44-1.00); GLUCOSE 102 mg/dl (70-220); MAGNESIUM 1.9 mg/dl (1.7-2.5); PHOSPHORUS 3.7 mg/dl (2.5-4.9); POTASSIUM 4.4 mmol/L (3.5-5.1); SODIUM 139 mmol/L (135-144)
[2018-03-06] MEDS: LISINOPRIL 5 MG TAB PO (08:39)
[2018-03-06] MEDS: ASPIRIN 81 MG TAB PO (08:39)
[2018-03-06] MEDS: BALSAM PERU/CASTOR OIL 60 GM TUBE TOP (08:40)
[2018-03-06] MEDS: LACTULOSE 30ML CUP PO (08:40)
[2018-03-06] MEDS: ATORVASTATIN 20 MG TAB PO (20:48)
[2018-03-06] MEDS: PAROXETINE 20 MG TAB PO (20:48)
[2018-03-07] MEDS: IPRATROPIUM (NEB) 0.5 MG/2.5 ML AMP NEB ×6 (00:51→20:00)
[2018-03-07] MEDS: FUROSEMIDE 20 MG TAB PO ×2 (06:36→17:42)
[2018-03-07] MEDS: PANTOPRAZOLE 40 MG INJ IV (06:36)
[2018-03-07] MEDS: INSULIN ASPART [NOVOLOG] 3 ML PEN SC ×3 (07:05→17:05)
[2018-03-07] MEDS: LACTULOSE 30ML CUP PO (10:15)
[2018-03-07] MEDS: LISINOPRIL 5 MG TAB PO (10:18)
[2018-03-07] MEDS: ASPIRIN 81 MG TAB PO (10:18)
[2018-03-07] MEDS: LINAGLIPTIN 5 MG TABLET PO (10:19)
[2018-03-07] MEDS: SPIRONOLACTONE 50 MG TAB PO (10:55)
[2018-03-07] MEDS: BALSAM PERU/CASTOR OIL 60 GM TUBE TOP (17:30)
[2018-03-07] MEDS: ATORVASTATIN 20 MG TAB PO (20:23)
[2018-03-07] MEDS: PAROXETINE 20 MG TAB PO (20:23)
[2018-03-08] MEDS: IPRATROPIUM (NEB) 0.5 MG/2.5 ML AMP NEB ×6 (04:32→20:40)
[2018-03-08] MEDS: PANTOPRAZOLE 40 MG INJ IV (05:43)
[2018-03-08] MEDS: FUROSEMIDE 20 MG TAB PO ×2 (05:45→17:19)
[2018-03-08] MEDS: SPIRONOLACTONE 50 MG TAB PO (05:45)
[2018-03-08] MEDS: INSULIN ASPART [NOVOLOG] 3 ML PEN SC ×3 (07:05→17:05)
[2018-03-08] MEDS: LINAGLIPTIN 5 MG TABLET PO (07:55)
[2018-03-08 07:56] LABS: ANION GAP 8 (5-13); BLOOD UREA NITROGEN 33 mg/dl (7-20); CALCIUM 8.2 mg/dl (8.4-10.2); CARBON DIOXIDE 30 mmol/L (21-31); CHLORIDE 99 mmol/L (97-110); CREATININE 0.94 mg/dl (0.44-1.00); GLUCOSE 110 mg/dl (70-220); MAGNESIUM 1.9 mg/dl (1.7-2.5); POTASSIUM 4.5 mmol/L (3.5-5.1); SODIUM 137 mmol/L (135-144)
[2018-03-08] MEDS: ASPIRIN 81 MG TAB PO (07:56)
[2018-03-08] MEDS: LACTULOSE 30ML CUP PO (07:56)
[2018-03-08] MEDS: LISINOPRIL 5 MG TAB PO (07:56)
[2018-03-08] MEDS: BALSAM PERU/CASTOR OIL 60 GM TUBE TOP (07:57)
[2018-03-08] MEDS: PAROXETINE 20 MG TAB PO (20:28)
[2018-03-08] MEDS: ATORVASTATIN 20 MG TAB PO (20:28)
[2018-03-08] MEDS: DIPHENHYDRAMINE 25 MG CAP PO (22:07)
[2018-03-09] MEDS: IPRATROPIUM (NEB) 0.5 MG/2.5 ML AMP NEB ×6 (00:55→20:14)
[2018-03-09] MEDS: PANTOPRAZOLE (EC) 40 MG TAB PO (06:00)
[2018-03-09] MEDS: SPIRONOLACTONE 50 MG TAB PO (06:00)
[2018-03-09] MEDS: FUROSEMIDE 20 MG TAB PO ×2 (06:00→17:24)
[2018-03-09] MEDS: INSULIN ASPART [NOVOLOG] 3 ML PEN SC ×3 (07:05→17:25)
[2018-03-09] MEDS: ASPIRIN 81 MG TAB PO (08:38)
[2018-03-09] MEDS: LACTULOSE 30ML CUP PO (08:38)
[2018-03-09] MEDS: LINAGLIPTIN 5 MG TABLET PO (08:38)
[2018-03-09] MEDS: LISINOPRIL 5 MG TAB PO (08:38)
[2018-03-09] MEDS: BALSAM PERU/CASTOR OIL 60 GM TUBE TOP (11:32)
[2018-03-09] MEDS: ATORVASTATIN 20 MG TAB PO (22:31)
[2018-03-09] MEDS: PAROXETINE 20 MG TAB PO (22:32)
[2018-03-10] MEDS: IPRATROPIUM (NEB) 0.5 MG/2.5 ML AMP NEB ×7 (00:57→20:12)
[2018-03-10] MEDS: PANTOPRAZOLE (EC) 40 MG TAB PO (06:32)
[2018-03-10] MEDS: SPIRONOLACTONE 50 MG TAB PO (06:33)
[2018-03-10] MEDS: FUROSEMIDE 20 MG TAB PO ×2 (06:33→17:00)
[2018-03-10] MEDS: INSULIN ASPART [NOVOLOG] 3 ML PEN SC ×3 (07:05→16:55)
[2018-03-10] MEDS: LACTULOSE 30ML CUP PO (08:29)
[2018-03-10] MEDS: ASPIRIN 81 MG TAB PO (08:30)
[2018-03-10] MEDS: LINAGLIPTIN 5 MG TABLET PO (08:30)
[2018-03-10] MEDS: LISINOPRIL 5 MG TAB PO (08:31)
[2018-03-10] MEDS: BALSAM PERU/CASTOR OIL 60 GM TUBE TOP (08:31)
[2018-03-10] MEDS ORDERED: HYDROCODONE/APAP (5/325) TAB PO (11:30)
[2018-03-10] MEDS: PAROXETINE 20 MG TAB PO (20:22)
[2018-03-10] MEDS: ATORVASTATIN 20 MG TAB PO (20:23)
[2018-03-10] MEDS: DIPHENHYDRAMINE 25 MG CAP PO (20:26)
[2018-03-11] MEDS: IPRATROPIUM (NEB) 0.5 MG/2.5 ML AMP NEB ×6 (00:57→21:00)
[2018-03-11] MEDS: SPIRONOLACTONE 50 MG TAB PO (06:28)
[2018-03-11] MEDS: PANTOPRAZOLE (EC) 40 MG TAB PO (06:28)
[2018-03-11] MEDS: FUROSEMIDE 20 MG TAB PO ×2 (06:29→17:40)
[2018-03-11] MEDS: LISINOPRIL 5 MG TAB PO (09:00)
[2018-03-11] MEDS: BALSAM PERU/CASTOR OIL 60 GM TUBE TOP (09:00)
[2018-03-11] MEDS: LACTULOSE 30ML CUP PO (09:00)
[2018-03-11] MEDS: ASPIRIN 81 MG TAB PO (09:23)
[2018-03-11] MEDS: LINAGLIPTIN 5 MG TABLET PO (09:23)
[2018-03-11] MEDS: INSULIN ASPART [NOVOLOG] 3 ML PEN SC ×3 (09:23→17:05)
[2018-03-11] MEDS: ATORVASTATIN 20 MG TAB PO (21:46)
[2018-03-11] MEDS: PAROXETINE 20 MG TAB PO (21:47)
[2018-03-12] MEDS: IPRATROPIUM (NEB) 0.5 MG/2.5 ML AMP NEB ×6 (02:08→21:25)
[2018-03-12] MEDS: SPIRONOLACTONE 50 MG TAB PO (06:00)
[2018-03-12] MEDS: PANTOPRAZOLE (EC) 40 MG TAB PO (06:29)
[2018-03-12] MEDS: FUROSEMIDE 20 MG TAB PO ×2 (06:29→17:22)
[2018-03-12] MEDS: INSULIN ASPART [NOVOLOG] 3 ML PEN SC ×3 (07:05→17:22)
[2018-03-12] MEDS: LINAGLIPTIN 5 MG TABLET PO (08:07)
[2018-03-12] MEDS: LISINOPRIL 5 MG TAB PO (09:00)
[2018-03-12] MEDS: LACTULOSE 30ML CUP PO ×2 (09:00→09:01)
[2018-03-12] MEDS: ASPIRIN 81 MG TAB PO (09:00)
[2018-03-12] MEDS: BALSAM PERU/CASTOR OIL 60 GM TUBE TOP (09:01)
[2018-03-12] MEDS: ATORVASTATIN 20 MG TAB PO (21:05)
[2018-03-12] MEDS: PAROXETINE 20 MG TAB PO (21:05)
[2018-03-12] MEDS: DIPHENHYDRAMINE 25 MG CAP PO (21:05)
[2018-03-13] MEDS: IPRATROPIUM (NEB) 0.5 MG/2.5 ML AMP NEB ×6 (00:47→20:46)
[2018-03-13] MEDS: PANTOPRAZOLE (EC) 40 MG TAB PO (05:41)
[2018-03-13] MEDS: FUROSEMIDE 20 MG TAB PO ×2 (05:42→17:41)
[2018-03-13] MEDS: SPIRONOLACTONE 50 MG TAB PO (05:42)
[2018-03-13] MEDS: INSULIN ASPART [NOVOLOG] 3 ML PEN SC ×3 (07:05→17:42)
[2018-03-13] MEDS: ASPIRIN 81 MG TAB PO (08:43)
[2018-03-13] MEDS: LINAGLIPTIN 5 MG TABLET PO (08:44)
[2018-03-13] MEDS: BALSAM PERU/CASTOR OIL 60 GM TUBE TOP (08:45)
[2018-03-13] MEDS: LISINOPRIL 5 MG TAB PO (08:45)
[2018-03-13] MEDS: LACTULOSE 30ML CUP PO (08:45)
[2018-03-13] MEDS: ATORVASTATIN 20 MG TAB PO (20:51)
[2018-03-13] MEDS: PAROXETINE 20 MG TAB PO (20:51)
[2018-03-14] MEDS: IPRATROPIUM (NEB) 0.5 MG/2.5 ML AMP NEB ×6 (01:09→20:31)
[2018-03-14] MEDS: FUROSEMIDE 20 MG TAB PO ×2 (06:32→17:29)
[2018-03-14] MEDS: PANTOPRAZOLE (EC) 40 MG TAB PO (06:32)
[2018-03-14] MEDS: SPIRONOLACTONE 50 MG TAB PO (06:33)
[2018-03-14] MEDS: INSULIN ASPART [NOVOLOG] 3 ML PEN SC ×3 (07:05→17:31)
[2018-03-14] MEDS: LINAGLIPTIN 5 MG TABLET PO (08:38)
[2018-03-14] MEDS: ASPIRIN 81 MG TAB PO (08:39)
[2018-03-14] MEDS: LISINOPRIL 5 MG TAB PO (08:42)
[2018-03-14] MEDS: LACTULOSE 30ML CUP PO (09:00)
[2018-03-14] MEDS: BALSAM PERU/CASTOR OIL 60 GM TUBE TOP (10:21)
[2018-03-14 16:46] LABS: ADD UMIC YES; UR ASCORBIC ACID NEGATIVE (NEGATIVE); UR BACTERIA MODERATE /HPF (NONE SEEN); UR BILIRUBIN (Dip) NEGATIVE (NEGATIVE); UR BLOOD (Dip) 2+ mg/dL (NEGATIVE); UR CLARITY CLOUDY (CLEAR); UR COLOR YELLOW (YELLOW); UR GLUCOSE (Dip) NEGATIVE (NEGATIVE); UR KETONES (Dip) NEGATIVE (NEGATIVE); UR LEUKOCYTE ESTERASE (Dip) 3+ Leu/ul (NEGATIVE); UR MUCUS FEW /HPF (NONE SEEN); UR NITRITE (Dip) POSITIVE (NEGATIVE); UR NONSQUAMOUS EPITHELIAL CELL 1 /HPF (NONE SEEN); UR RBC 14 /HPF (0-5); UR SPECIFIC GRAVITY (Dip) 1.008 (1.003-1.030); UR TOTAL PROTEIN (Dip) NEGATIVE (NEGATIVE); UR UROBILINOGEN (Dip) NEGATIVE (NEGATIVE); UR WBC > 182 /HPF (0-5)
[2018-03-14] MEDS: PAROXETINE 20 MG TAB PO (21:15)
[2018-03-14] MEDS: ATORVASTATIN 20 MG TAB PO (21:15)
[2018-03-15] MEDS: IPRATROPIUM (NEB) 0.5 MG/2.5 ML AMP NEB ×6 (00:26→20:20)
[2018-03-15] MEDS: PANTOPRAZOLE (EC) 40 MG TAB PO (06:40)
[2018-03-15] MEDS: SPIRONOLACTONE 50 MG TAB PO (06:40)
[2018-03-15] MEDS: FUROSEMIDE 20 MG TAB PO ×2 (06:40→18:03)
[2018-03-15] MEDS: INSULIN ASPART [NOVOLOG] 3 ML PEN SC ×3 (07:05→17:05)
[2018-03-15] MEDS: LINAGLIPTIN 5 MG TABLET PO (08:32)
[2018-03-15] MEDS: LACTULOSE 30ML CUP PO (09:00)
[2018-03-15] MEDS: LISINOPRIL 5 MG TAB PO (09:41)
[2018-03-15] MEDS: ASPIRIN 81 MG TAB PO (09:41)
[2018-03-15] MEDS: BALSAM PERU/CASTOR OIL 60 GM TUBE TOP (09:42)
[2018-03-15] MEDS: ATORVASTATIN 20 MG TAB PO (20:42)
[2018-03-15] MEDS: PAROXETINE 20 MG TAB PO (20:43)
[2018-03-15] MEDS: DIPHENHYDRAMINE 25 MG CAP PO (20:50)
[2018-03-16] MEDS: IPRATROPIUM (NEB) 0.5 MG/2.5 ML AMP NEB ×5 (01:58→17:00)
[2018-03-16] MEDS: PANTOPRAZOLE (EC) 40 MG TAB PO (06:23)
[2018-03-16] MEDS: FUROSEMIDE 20 MG TAB PO ×2 (06:25→18:01)
[2018-03-16] MEDS: SPIRONOLACTONE 50 MG TAB PO (06:27)
[2018-03-16] MEDS: INSULIN ASPART [NOVOLOG] 3 ML PEN SC ×3 (07:05→17:59)
[2018-03-16] MEDS: LINAGLIPTIN 5 MG TABLET PO (08:07)
[2018-03-16] MEDS: LACTULOSE 30ML CUP PO (09:00)
[2018-03-16] MEDS: LISINOPRIL 5 MG TAB PO (09:18)
[2018-03-16] MEDS: BALSAM PERU/CASTOR OIL 60 GM TUBE TOP (09:18)
[2018-03-16] MEDS: ASPIRIN 81 MG TAB PO (09:18)
== END 2018-03-16 20:00 | DRG 947 ==
LOC: VRC 03-13 11:30
DX: R53.81 Other malaise (principal); G92 Toxic encephalopathy; I50.23 Acute on chronic systolic (congestive) heart failure; I21.4 Non-ST elevation (NSTEMI) myocardial infarction; K83.1 Obstruction of bile duct; N17.9 Acute kidney failure, unspecified; I42.9 Cardiomyopathy, unspecified; I13.0 Hypertensive heart and chronic kidney disease with heart failure and stage 1 through stage 4 chronic kidney disease, or unspecified chronic kidney disease; N39.0 Urinary tract infection, site not specified; R18.8 Other ascites; G31.84 Mild cognitive impairment of uncertain or unknown etiology; Z74.09 Other reduced mobility; R13.10 Dysphagia, unspecified; I11.0 Hypertensive heart disease with heart failure; I48.91 Unspecified atrial fibrillation; I25.10 Atherosclerotic heart disease of native coronary artery without angina pectoris; D64.9 Anemia, unspecified; K74.60 Unspecified cirrhosis of liver; Z95.5 Presence of coronary angioplasty implant and graft; E07.81 Sick-euthyroid syndrome; E11.649 Type 2 diabetes mellitus with hypoglycemia without coma; D47.3 Essential (hemorrhagic) thrombocythemia; N18.9 Chronic kidney disease, unspecified; B95.2 Enterococcus as the cause of diseases classified elsewhere; F06.31 Mood disorder due to known physiological condition with depressive features; F06.8 Other specified mental disorders due to known physiological condition
CPT/HCPCS: 71045; 76705; 80048; 80053; 81001; 82105; 82962; 83735; 84100; 85025; 87045; 87081; 87086; 87177; 90686; 92526; 92610; 93005; 94640; 97110; 97112; 97116; 97150; 97163; 97167; 97530; 97535; 97542